=== PATIENT | male | born 1945 | race Caucasian/White ===

== ENCOUNTER 2017-11-04 21:15 | Inpatient (IN) | payer MEDICARE ==
[2017-11-04 23:44] LABS: Troponin I Less than 0.010 ng/mL (< 0.028)
[2017-11-05 01:25] VITALS: BMI 20.7
[2017-11-05] MEDS ORDERED: Ondansetron ODT 4 MG TAB SL PRN (02:03)
[2017-11-05] MEDS ORDERED: Ondansetron HCl/PF 4 MG/2 ML Vial IVP PRN ×2 (02:03→07:04)
[2017-11-05 02:49] LABS: Troponin I Less than 0.010 ng/mL (< 0.028)
[2017-11-05] MEDS ORDERED: Piperacillin/Tazobactam 3.375 GM in Sodium Chloride 0.9% 100 ML IVPB SCH (06:00)
[2017-11-05] MEDS ORDERED: hydrALAZINE 20 MG/ML VIAL SLOW IVP PRN (07:04)
[2017-11-05] MEDS ORDERED: Loperamide HCl 2 MG CAP PO PRN (07:04)
[2017-11-05] MEDS ORDERED: Artificial Tears 18 DROP/0.9 ML EA EYE PRN (07:04)
[2017-11-05] MEDS ORDERED: Milk Of Magnesia 30 ML UDCUP PO PRN (07:04)
[2017-11-05] MEDS ORDERED: Eucerin (Mineral Oil/Petrolatum,White) 30 gm Jar TOP PRN (07:04)
[2017-11-05] MEDS ORDERED: Ondansetron ODT 4 MG TAB PO PRN (07:04)
[2017-11-05] MEDS ORDERED: Senokot 8.6 MG TAB PO PRN (07:04)
[2017-11-05] MEDS ORDERED: Chloraseptic Spray 180 ml Bottle PO PRN (07:04)
[2017-11-05] MEDS ORDERED: Loratadine 10 MG TAB PO PRN (07:04)
[2017-11-05] MEDS ORDERED: Acetaminophen 325 MG TAB PO PRN (07:04)
[2017-11-05] MEDS ORDERED: Sodium Chloride 0.65% Nasal 44 ML BOT EA NARE PRN (07:04)
[2017-11-05] MEDS ORDERED: Mag-Al 1200 mg/1200 mg/30 ML UDCUP PO PRN (07:04)
[2017-11-05] MEDS: guaiFENesin ER 600 MG TAB PO SCH ×4 (08:14→20:27)
[2017-11-05] MEDS: Cyanocobalamin (Vitamin B-12) 1,000 MCG TAB PO SCH (08:14)
[2017-11-05] MEDS: Famotidine 20 MG TAB PO SCH ×2 (08:14→20:27)
[2017-11-05] MEDS: Folic Acid 1 MG TAB PO SCH (08:14)
[2017-11-05] MEDS ORDERED: Prevnar 13-Val Conj/PF 0.5 ML SYRINGE IM ONE (09:00)
[2017-11-05] MEDS: cefTRIAXone\\ROCEPHIN 1 GM in Sodium Chloride 0.9% 100 ML IVPB SCH (10:16)
--- NOTE | 2017-11-05 10:43 | CON ---
DATE OF CONSULTATION: 11/05/2017 The following encompassed 70 minutes time. Of that time, greater than 50% was spent with the patient and/or on the patient's unit in the hospital. CONSULTING PHYSICIAN: Marika Irby M.D. REASON FOR CONSULTATION: COPD. HISTORY OF PRESENT ILLNESS: A 72-year-old male, who presented in the hospital last night complaining that he had fallen and hurt his tailbone. It is not clear to me with a respiratory issue was. The ER note states that he was hypoxic on admission, but I think that is probably chronic in nature. He was also somewhat hypotensive. He had a CT pulmonary angiogram performed, which did not show any zac dence of pulmonary emboli, but showed extensive emphysema and scarring bilaterally. PAST MEDICAL HISTORY: Patient is a difficult historian. He says he probably has some COPD, but does not follow closely with doctor. PAST SURGICAL HISTORY: Left hip replacement and left knee surgery. SOCIAL HISTORY: The patient says he quit smoking 2 months ago. Formerly smoked less than a pack per day. Does not use alcohol, does not use illicit drugs. Lives at home with his . ALLERGIES: None. MEDICATIONS PRIOR TO ADMISSION: None. REVIEW OF SYSTEMS: A 12-point review of systems otherwise negative. PHYSICAL EXAMINATION: VITAL SIGNS: Temperature 97.8, pulse 68, respirations 20, O2 sat 90% on 2 liters, and blood pressure 129/78. HEENT: Unremarkable. NECK: Without adenopathy or JVD. He cannot talk above a whisper. LUNGS: Clear but distant. CARDIAC: S1 and S2, regular. ABDOMEN: Soft. EXTREMITIES: No edema. LABORATORY DATA: White blood cell count 4.1, hematocrit 49.8, platelet count 67. INR 1.1. Sodium 1 40, potassium 4.4, chloride 97, CO2 of 32, BUN 15, creatinine 0.7, glucose 106. I reviewed chest x-ray and CT of the chest personally. ASSESSMENT: 1. Chronic obstructive pulmonary disease with chronic hypoxemia - likely more than emphysematous sarah iety. 2. Vocal loss secondary to traumatic injury in the past. 3. Tailbone pain. RECOMMENDATIONS: 1. Agree with steroids, nebulization treatments, and low flow oxygen. Also agree with the antibioti cs. 2. In the future, he will need further pulmonary testing such as a PFT. This can be done as an outp atient. No further recommendations at this time.
[2017-11-05] MEDS ORDERED: Albumin 25% 25 GM/100 ML BOT IVPB SCH (11:13)
--- NOTE | 2017-11-05 11:51 | HP ---
PRIMARY CARE PHYSICIAN: [facility] call admission. REASON FOR ADMISSION: COPD exacerbation. HISTORY OF PRESENT ILLNESS: A 72-year-old male who is cachectic appearing, very poor historian and does not know about his medical history, but he only complains that his tailbone hurts. Couple of days ago, he fell down and since then he is hurting in his tailbone. He is not complaining of any shortness of breath, but he was hypoxic in the emergency room. He was having cough, productive of sputum. He feels dyspnea on exertion. Patient denies using oxygen at home. He has increasing bilateral lower extremity edema and he was feeling more and more weak. The patient also reports that he lost a significant amount of weight. The patient had recently frequent falls because of his overall weakness. The patient went to [facility]. Over there, he was febrile with a temperature 100.0. He was hypertensive and he was hypoxic with 89% on room air. The patient had elevated D-dimer and that is why CT angio was done, which was negative for pulmonary embolism, but it showed severe lung emphysema and some mass-like scarring in the left lower lobe, pulmonary artery hypertension, and mucus throughout the distal trachea. CT of the abdomen and pelvis was unremarkable. At [facility], he was given Zosyn, Lidocaine Viscous, DuoNeb therapy, Solu-Medrol 125 mg, and IV fluid. Subsequently, he was transferred to our hospital for further evaluation. PAST MEDICAL HISTORY: At this point, family member is not present, so patient is unable to provide any history, but he reports that he had vertebral fracture. History of hyperthyroidism, not on any medicine. The patient was told that he has COPD. PAST SURGICAL HISTORY: Left hip replacement, left knee surgery, left eye surgery. PAST PSYCHIATRIC HISTORY: Reviewed and negative. SOCIAL HISTORY: The patient is smoking one and a half cigarette per day. He denies any alcohol abuse. He denies any other illicit drug abuse. The patient is retired, lives with his . He is prior . FAMILY HISTORY: No strong family history of premature CAD, CVA or cancer. ALLERGIES: No known drug allergy. CURRENT HOME MEDICATIONS: Unable to verify his home medication because no family member present and patient does not have any clue of about medication. EMERGENCY ROOM COURSE: As mentioned above, the patient was given Zosyn, Solu- Medrol 125 mg, DuoNeb therapy, IV fluid at [facility]. REVIEW OF SYSTEMS: The following complete review of systems was negative, unless otherwise mentioned in the HPI or below: Constitutional: Weight loss or gain, ability to conduct usual activities. Skin: Rash, itching. Eyes: Double vision, pain. ENT/Mouth: Nose bleeding, neck stiffness, pain, tenderness. Cardiovascular: Palpitations, dyspnea on exertion, orthopnea. Respiratory: Shortness of breath, wheezing, cough, hemoptysis, fever or night sweats. Gastrointestinal: Poor appetite, abdominal pain, heartburn, nausea, vomiting, constipation, or diarrhea. Genitourinary: Urgency, frequency, dysuria, nocturia. Musculoskeletal: Pain, swelling. Neurologic/Psychiatric: Anxiety, depression. Allergy/Immunologic: Skin rash, bleeding tendency. Please see my HPI for pertinent positive and negative. All other review of system reviewed and negative except as mentioned in the HPI. PHYSICAL EXAMINATION: VITAL SIGNS: On arrival, blood pressure 104/51, pulse 85, respiratory rate 22, temperature 95.7. Initial temperature at [facility] was 100.6 , saturation 100% on 3 liter oxygen, weight 53.6 kilograms. GENERAL: Patient is cachectic and emaciated. HEENT: Normocephalic, atraumatic. Eyes: Pupils round, reactive to light. Extraocular muscle intact. ENT: Oropharynx within normal limits. Moist mucous membranes. No oral lesion, no pharyngeal erythema, no exudate. NECK: Patient does have gurgling sound, difficult to clear his oral and tracheal secretion. LUNGS: Bilateral end expiratory wheezing heard. Air entry reduced bilaterally , scattered rales noted, more on the left base. CARDIAC: S1 and S2 appears regular without any significant murmur. ABDOMEN: Scaphoid abdomen, no peritoneal sign, no organomegaly, no mass, no suprapubic tenderness. BACK: Patient has marked kyphosis. Patient does have a stage II pressure ulcer on sacrum, which is present on admission. No CVA tenderness. EXTREMITIES: Upper extremity passive movement of all joints are normal. Lower Bilateral lower extremity pitting edema noted. No calf tenderness. SKIN: No skin rash. PSYCHIATRIC: Normal affect. NEUROLOGIC: Grossly nonfocal examination. He is moving all 4 limbs. IMAGING DATA: EKG showing premature atrial complexes, left axis deviation. Chest, CT of the abdomen and pelvis showing no acute inflammatory process in the abdomen and pelvis, demineralization of the bone with multiple compression deformity as well as old right iliac wing fracture, third spacing consistent with low grade anasarca. CT angio showing severe lung emphysema, some mass- like scaring and left lower lobe, pulmonary artery hypertension, chronic bronchitis, mucus throughout the distal trachea. Chest x-ray, chronic changes, emphysematous changes. SIGNIFICANT LABORATORY DATA: CBC: WBC 4.1, hemoglobin 15.5, and platelet 67, MCV 106.9. INR 1.1. D-dimer 3.99. BMP: Sodium 140, potassium 4.4, chloride 97, carbon dioxide 32, anion gap 15, BUN 15, creatinine 0.76, glucose 106, calcium 8.7, lactic acid 1.1. LFT: AST 21, ALT 10, alkaline phosphatase 48, albumin 3.3, lipase 6, TSH 0.49. Cardiac enzymes negative x2. BNP 308.6. Urinalysis, microscopic hematuria. Blood culture negative so far. ASSESSMENT AND PLAN: 1. Frequent fall and tailbone pain. This is main patient complained and that is why we will do CT lumbar spine to rule out any fracture. CT of the abdomen and pelvis did report multiple compression deformity most likely this patient has underlying osteoporosis. The patient's pain will be controlled with pain medication. 2. Chronic obstructive pulmonary disease with chronic hypoxia and compensation with metabolic alkalosis. I am suspecting CO2 retention, chronic, and metabolic compensation based on elevated carbon dioxide, we will do ABG and confirmed his acid base status. He has associated hypoxia. We will try to keep his saturation around 92%. We will avoid high flow oxygen. We will continue with Solu-Medrol 20 mg IV q.6 hourly, Dulera two puff inhalation b.i.d. , empiric antibiotic therapy with Rocephin 1 gram q.24 hours, Levaquin 500 mg IV daily, Mucinex 600 mg 4 times daily, DuoNeb therapy every 6 hourly and as needed basis. Patient will need oxygen. 3. Severe protein calorie malnutrition. The patient will be given Ensure t.i.d., regular diet will be given. 4. Elevated BNP. Patient does have bilateral lower extremity edema. His BNP is elevated and that is why, we will do echocardiography. I am suspecting right -sided heart failure from chronic hypoxia and pulmonary hypertension and this could be a part of chronic cor pulmonale. If blood pressure permits, then we will continue the Lasix 20 mg IV daily. 5. Leukopenia and thrombocytopenia, etiology unclear. We will check B12, folate level tomorrow. We will also check hepatitis A, B, C given he is . 6. Macrocytosis. We will start folic acid and vitamin B12 therapy. 7. Thrombocytopenia. We will monitor platelet count and we will avoid anti- heparin product. 8. Elevated D-dimer, but negative CT angio for PE. 9. Microscopic hematuria. We will send urine culture. 10. Hypotension, most likely related with pulmonary hypertension from chronic hypoxia. 11. Hypoalbuminemia due to protein calorie malnutrition. The patient will be given nutritional supplement with albumin 25 grams. 12. Deep venous thrombosis prophylaxis. No Lovenox because of low platelet count. SCD boots only. 13. Gastrointestinal prophylaxis, Pepcid 20 mg p.o. b.i.d. CODE STATUS: The patient is FULL CODE. We will discuss with the patient's about code status later on. Disposition plan based on clinical course. The patient will need eventually PT , OT and possible placement. Plan of care discussed with the patient in detail. MTDD
[2017-11-05] MEDS ORDERED: methylPREDNISolone Sod Succ/PF 125 MG/2 ML VIAL IVP SCH (12:00)
--- NOTE | 2017-11-05 12:16 | CT ---
NONCONTRAST CT LUMBAR SPINE: Date: 11-05-17 History: Generalized weakness for three days. Worse today. Patient fell three days ago and has pain t o lower back and coccygeal region. Comparison: CT abdomen/pelvis, 11-04-17. FINDINGS: There has been interval development of a left pleural effusion when compared to recent study on 8. There is also partial visualization of a small right pleural effusion which also represents interv al change. There is minimal stranding seen in the medial aspect of the left upper quadrant which is more promine nt than on the prior exam. Residual contrast is seen in the renal collecting systems and ureters. Vascular calcifications are seen in the abdominal aorta and involving the iliac artery. There is ecta anya of the left common iliac artery with mild aneurysmal dilatation of the right common iliac artery. There is a small amount of fluid and edema within the presacral fat incompletely imaged or evaluated . There is diffuse osteopenia with mild compression deformities involving the T11, T12, L1 and to a muc h less extent, L5 vertebral bodies, of indeterminate age. There is a fracture involving the S2 verteb ral body which has the appearance of a more acute fracture and there is mild angulation of the fractu re. No subluxation is seen. There is calcification of the intervertebral disc of the lower thoracic spine at the thoracolumbar junction. T12-L1: There is posterior osteophyte formation and minimal disc bulge. The central spinal canal and neural foramina are patent. L1-2: There is no significant disc bulge or disc herniation. Central spinal canal and neural foramina are patent. There are mild facet degenerative changes. L2-3: There is minimal disc osteophyte complex and facet hypertrophic change as well as ligamentous t hickening resulting in mild to moderate narrowing of the central spinal canal. Neural foramina are pa tent. L3-4: There is mild loss of the intervertebral disc height. There is broad based disc osteophyte comp caterina. Facet hypertrophic changes and prominent ligamentous thickening are present resulting in moderat e to severe narrowing of the central spinal canal as well as narrowing of the lateral recesses at thi s level. There is mild right sided neural foraminal narrowing. There is minimal encroachment on the l eft neural foramen. L4-5: There is mild broad based disc osteophyte complex. Facet hypertrophic changes and ligamentous t hickening are present. There is moderate to severe narrowing of the central spinal canal. There is mi nimal narrowing of the right neural foramen. The left neural foramen is patent. L5-S1: There is minimal disc bulge present which does encroach on the traversing bilateral S5 nerve r oots without significant displacement or deformity of the nerve roots. Neural foramina are patent. Th ere are facet degenerative changes noted. IMPRESSION: 1. Interval development of bilateral pleural effusions when compared to study on 11-04-17. 2. Minimal edema and inflammatory changes in the posteromedial left upper quadrant adjacent to the sp akil and superior pole left kidney of uncertain etiology. There is also a small amount of fluid and e mary within the presacral fat. 3. 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 4. Acute angulated fracture involving the S2 vertebral body. 5. Compression deformities of lower thoracic vertebral bodies as well as the L1 and L5 vertebral bodi es of indeterminate age. 6. Diffuse severe osteopenia. POS: ЕЛЕНА
[2017-11-05] MEDS: Mometasone/Formoterol 120 PUFF INHALER INH SCH (18:11)
[2017-11-06 05:54] LABS: #Lymphocytes 0.4 thou/uL (1.20-3.40); #Monocytes 0.1 thou/uL (0.11-0.59); #Neutrophils 5.2 thou/uL (1.40-6.50); %Basophils 0.1 % (0.0-1.0); %Eosinophils 0.6 % (0.0-10.0); %Monocytes 2.4 % (0.0-10.0); %Neutrophils 89.9 % (42.0-75.0); Hemoglobin 14.7 g/dL (14.0-18.0); Mean Corpuscular HGB CONC 29.7 g/dL (32.0-36.0); Mean Corpuscular Hemoglobin 34.9 pg (27.0-31.0); Mean Platelet Volume 10.2 fL (7.4-10.4); Platelet Count 49 thou/uL (130-400); RBC Distribution Width 14.4 % (11.5-14.5); Red Blood Cell (RBC) Count 4.22 mill/uL (4.70-6.10); White Blood Cell (WBC) Count 5.8 thou/uL (4.8-10.8)
[2017-11-06 05:59] LABS: ALT (SGPT) 9 U/L (8-55); AST (SGOT) 19 U/L (5-34); Albumin 3.3 g/dL (3.4-4.8); Alkaline Phosphatase 42 U/L (40-150); Anion Gap 9 mmol/L (10-20); BUN (Urea Nitrogen) 17 mg/dL (8.4-25.7); Bilirubin, Total 0.4 mg/dL (0.2-1.2); Calc. Creatinine Clearance 75 mL/min (70-130); Calcium 8.6 mg/dL (7.8-10.44); Carbon Dioxide 34 mmol/L (23-31); Chloride 103 mmol/L (98-107); Estimated GFR-MDRD Greater than 90; Globulin 3.1 g/dL (2.4-3.5); Glucose 138 mg/dL (83-110); Potassium 5.8 mmol/L (3.5-5.1); Protein, Total 6.4 g/dL (5.8-8.1); Sodium 140 mmol/L (136-145)
[2017-11-06 06:15] LABS: HBCM Index 0.05 S/CO (0-0.79); HBSAg Index 0.23 S/CO (0-0.99); Hep A IgM AB Non-Reactive (NonReactive); Hep A IgM S/CO 0.27 S/CO (0-0.79); Hep B Surf Ag Non-Reactive S/CO (NonReactive); Hep C IgG Ab Non-Reactive (NonReactive); Hepatitis B Core IGM Abs Non-Reactive (NonReactive)
[2017-11-06] MEDS: Mometasone/Formoterol 120 PUFF INHALER INH SCH ×2 (06:49→18:23)
[2017-11-06] MEDS: guaiFENesin ER 600 MG TAB PO SCH ×4 (07:42→20:23)
[2017-11-06] MEDS: Cyanocobalamin (Vitamin B-12) 1,000 MCG TAB PO SCH (07:42)
[2017-11-06] MEDS: Famotidine 20 MG TAB PO SCH ×2 (07:42→20:22)
[2017-11-06] MEDS: Folic Acid 1 MG TAB PO SCH (07:42)
[2017-11-06 08:06] LABS: Magnesium 2.4 mg/dL (1.6-2.6); Phosphorus 3.2 mg/dL (2.3-4.7)
[2017-11-06 08:27] LABS: Thyroid Stimulating Hormone 0.4468 uIU/mL (0.35-4.94); Vitamin D, 25 Hydroxy 31.1 ng/ml (> 30.0)
[2017-11-06 08:40] LABS: Folate (Folic Acid) 11.8 ng/mL (7.0-31.4)
[2017-11-06] MEDS: cefTRIAXone\\ROCEPHIN 1 GM in Sodium Chloride 0.9% 100 ML IVPB SCH (08:43)
--- NOTE | 2017-11-06 10:10 | PDOC.PN ---
- Subjective Encounter Start Date: 11/06/17 Encounter Start Time: 08:00 -: old records requested/rev - Objective Resuscitation Status: Resuscitation Status FULL:Full Resuscitation MAR Reviewed: Yes Vital Signs & Weight: Vital Signs (12 hours) Temp Pulse Resp BP BP Pulse Ox 11/06/17 08:00 97.6 F 91 16 104/51 L 85 L 11/06/17 06:48 73 18 98 11/06/17 04:42 97.7 F 81 18 110/63 97 11/05/17 23:43 81 18 100 Weight Weight 132 lb 4.8 oz I&O: 11/05/17 11/06/17 11/07/17 06:59 06:59 06:59 Intake Total 350 360 Output Total 450 400 Balance -100 -40 Result Diagrams: 11/06/17 04:18 11/06/17 04:18 Additional Labs: Accuchecks 11/05/17 11:09 POC Glucose 134 H Phys Exam - Physical Examination Constitutional: NAD emaciated HEENT: PERRLA, moist MMs, sclera anicteric Neck: no JVD, supple reduced air entry Cardiovascular: RRR, no significant murmur, no rub Gastrointestinal: soft, non-tender, no distention, positive bowel sounds Musculoskeletal: pulses present, edema present Neurological: non-focal, normal sensation Lymphatic: no nodes Psychiatric: normal affect Skin: no rash, normal turgor Dx/Plan (1) Acute on chronic respiratory failure with hypoxia and hypercapnia Code(s): J96.21 - ACUTE AND CHRONIC RESPIRATORY FAILURE WITH HYPOXIA; J96.22 - ACUTE AND CHRONIC RESPIRATORY FAILURE WITH HYPERCAPNIA Status: Acute (2) COPD exacerbation Code(s): J44.1 - CHRONIC OBSTRUCTIVE PULMONARY DISEASE W (ACUTE) EXACERBATION Status: Acute (3) Physical deconditioning Code(s): R53.81 - OTHER MALAISE Status: Acute (4) Sacral fracture Code(s): S32.10XA - UNSP FRACTURE OF SACRUM, INIT ENCNTR FOR CLOSED FRACTURE Status: Acute (5) Compression fracture of body of thoracic vertebra Code(s): S22.000A - WEDGE COMPRESSION FRACTURE OF UNSP THORACIC VERTEBRA, INIT Status: Chronic (6) Hypoalbuminemia due to protein-calorie malnutrition Code(s): E46 - UNSPECIFIED PROTEIN-CALORIE MALNUTRITION Status: Chronic (7) Macrocytosis Code(s): D75.89 - OTHER SPECIFIED DISEASES OF BLOOD AND BLOOD-FORMING ORGANS Status: Chronic (8) Osteoporosis Code(s): M81.0 - AGE-RELATED OSTEOPOROSIS W/O CURRENT PATHOLOGICAL FRACTURE Status: Chronic (9) Protein-calorie malnutrition, moderate Code(s): E44.0 - MODERATE PROTEIN-CALORIE MALNUTRITION Status: Chronic (10) Pulmonary hypertension Code(s): I27.20 - PULMONARY HYPERTENSION, UNSPECIFIED Status: Chronic (11) Thrombocytopenia Code(s): D69.6 - THROMBOCYTOPENIA, UNSPECIFIED Status: Chronic (12) Tobacco abuse Code(s): Z72.0 - TOBACCO USE Status: Chronic - Plan cont current plan of care, continue antibiotics, PT/OT, social service manager, respiratory therapy * reduce solumedrol 20 mg iv q 8 hourly * continue current optimum medical therapy for copd flare up * continue rocephin and levaquin * for compression fracture and sacral fracture, he will need neurosurgery consult. he may need brace * pain controlled * B12, folate, phos, mag, vit d level, PTH checked * nutritional support * will need oxygen on discharge * echo pending * will need placement on discharge Review of Systems - Review of Systems Constitutional: weakness, malaise. negative: fever, chills, sweats, other ENT: negative: Ear Pain, Ear Discharge, Nose Pain, Nose Discharge, Nose Congestion, Mouth Pain, Mouth Swelling, Throat Pain, Throat Swelling, Other Respiratory: Cough, Shortness of Breath, SOB with Excertion. negative: Dry, Hemoptysis, Pleuritic Pain, Sputum, Wheezing Cardiovascular: negative: chest pain, palpitations, orthopnea, paroxysmal nocturnal dyspnea, edema, light headedness, other Gastrointestinal: negative: Nausea, Vomiting, Abdominal Pain, Diarrhea, Constipation, Melena, Hematochezia, Other Genitourinary: negative: Dysuria, Frequency, Incontinence, Hematuria, Retention , Other Musculoskeletal: Back Pain. negative: Neck Pain, Shoulder Pain, Arm Pain, Hand Pain, Leg Pain, Foot Pain, Other Skin: negative: Rash, Lesions, Tito, Bruising, Other - Medications/Allergies Allergies/Adverse Reactions: Allergies Allergy/AdvReac Type Severity Reaction Status Date / Time No Known Allergies Allergy Unverified 11/05/17 01:30 Medications: Current Medications Acetaminophen (Tylenol) 650 mg PO Q4H PRN PRN Reason: Headache/Fever or Pain Last Admin: 11/05/17 20:27 Dose: 650 mg Hydrocodone Bitart/Acetaminophen ([place] 5/325) 1 tab PO Q4H PRN PRN Reason: Moderate Pain (4-6) Al Hydroxide/Mg Hydroxide (Maalox) 30 ml PO Q6H PRN PRN Reason: Heartburn or Indigestion Albuterol/Ipratropium (Duoneb) 3 ml NEB [id number] [facility] Last Admin: 11/06/17 06:48 Dose: 3 ml Albuterol/Ipratropium (Duoneb) 3 ml NEB [id number] PRN PRN Reason: SOB &/or Wheezing Artificial Tears (Tears Naturale) 0 drop EA EYE PRN PRN PRN Reason: Dry Eyes Cyanocobalamin (Vitamin B-12) 1,000 mcg PO DAILY [facility] Last Admin: 11/06/17 07:42 Dose: 1,000 mcg Famotidine (Pepcid) 20 mg PO BID [facility] Last Admin: 11/06/17 07:42 Dose: 20 mg Folic Acid (Folvite) 1 mg PO DAILY [facility] Last Admin: 11/06/17 07:42 Dose: 1 mg Guaifenesin (Mucinex) 600 mg PO QID [facility] Last Admin: 11/06/17 07:42 Dose: 600 mg Hydralazine HCl (Apresoline) 10 mg SLOW IVP Q4H PRN PRN Reason: Systolic BP > 180 Ceftriaxone Sodium 1 gm/ (Sodium Chloride) 100 mls @ 200 mls/hr IVPB 0800 [facility] Last Admin: 11/06/17 08:43 Dose: 100 mls Levofloxacin 500 mg/ Device 100 mls @ 100 mls/hr IVPB 0800 [facility] Last Admin: 11/06/17 07:41 Dose: 100 mls Loperamide HCl (Imodium) 2 mg PO PRN PRN PRN Reason: Diarrhea/Loose Stools Loratadine (Claritin) 10 mg PO DAILYPRN PRN PRN Reason: Sinus Symptoms Magnesium Hydroxide (Milk Of Magnesium) 30 ml PO DAILYPRN PRN PRN Reason: Constipation Methylprednisolone Sodium Succinate (Solu-Medrol) 20 mg IVP Q8HR [facility] Mineral Oil/White Petrolatum (Eucerin Cream) 0 gm TOP BIDPRN PRN PRN Reason: Dry Skin Mometasone Furoate/Formoterol Fumar (Dulera 200 Mcg/5 Mcg Inhaler) 2 puff INH BID-RT [facility] Last Admin: 11/06/17 06:49 Dose: 2 puff Ondansetron HCl (Zofran Odt) 4 mg PO Q6H PRN PRN Reason: Nausea/Vomiting Ondansetron HCl (Zofran) 4 mg IVP Q6H PRN PRN Reason: Nausea/Vomiting Phenol (Chloraseptic Adams 180 Ml Bot) 0 ml PO PRN PRN PRN Reason: Sore Throat Senna (Senokot) 2 tab PO HSPRN PRN PRN Reason: Constipation Sodium Chloride ([place] Nasal Adams 0.65%) 0 ml EA NARE QIDPRN PRN PRN Reason: Nasal Congestion Sodium Polystyrene Sulfonate (Kayexelate Oral Susp 15 Gm/60 Ml) 15 gm PO 0900 [facility] Stop: 11/06/17 12:00 Zolpidem Tartrate (Ambien) 5 mg PO HSPRN PRN PRN Reason: Insomnia
--- NOTE | 2017-11-06 15:39 | CON ---
DATE OF CONSULTATION: 11/06/2017 ORTHOPEDIC CONSULTATION REQUESTING PHYSICIAN: Dr. Irby. BRIEF HISTORY OF PRESENT ILLNESS: Mr. De Leon is a 72-year-old cachectic male who is examined today at bedside at the request of Dr. Irby. Patient reports that a few days prior to his admission on , he fell landing on his buttocks with subsequent "tailbone" pain. Patient now admitted for exacerbation of COPD and with his complaint of ongoing sacral pain, a CT scan of the lumbar spine and sacrum was obtained and this shows insufficiency fracture of the body of S2 and orthopedic consultat ion then requested. Of note, patient reports that about 2 months ago, he had another fall landing on his left side. He reports that he was in a wheelchair for nearly 2 months and just recently started to attempt ambulation again when he sustained this most current fall. He denies numbness or tinglin g in the lower legs, but does report swelling in the bilateral lower legs which is in a more chronic problem. PAST MEDICAL HISTORY: Per chart is remarkable for severe COPD, history of hyperthyroidism. Patient is extremely short of breath and essentially speaks as in a whisper. PAST SURGICAL HISTORY: Includes left total hip arthroplasty, left knee surgery and left eye surgery. SOCIAL HISTORY: He smokes an occasional cigarette daily. He denies alcohol use or illicit drug use. FAMILY HISTORY: Noncontributory. ALLERGIES: None known. HOME MEDICATIONS: At time of admission it was unclear whether he was taking any of his normal home m edications. REVIEW OF SYSTEMS: Denies recent fevers, chills or sweats. He reports chronic shortness of breath a nd exertional dyspnea. Denies numbness or tingling in the lower extremity. PHYSICAL EXAMINATION: VITAL SIGNS: Temperature 97.6, heart rate of 75, respiratory rate of 14 and blood pressure of 104/51 . HEENT: Atraumatic and normocephalic. LUNGS: Remarkable for bilateral end expiratory wheezing and extremely reduced air movement. HEART: Shows a regular rate and rhythm without murmur. BACK: Remarkable for some discomfort in the sacral region. PELVIS: Stable to compression without significant increase in sacral pain. MUSCULOSKELETAL: Bilateral lower extremities are neurologically intact. He is found to have depende nt rubor and some baseline pitting edema. IMAGING DATA: CT scan of the lumbar spine which includes the sacrum remarkable for a S2 fracture of the body of S2 with no significant narrowing of the neural foramina. ASSESSMENT: Patient with S2 body fracture, stable. PLAN: Today, I discussed with patient that we will treat this with nonsurgical management. I have s josé antonioly recommended that he use a walker when ambulating to try and minimize any additional falls. H e will just require some pain management, although this will be a delicate balance so as not to cause any further sedation which would further compromise his breathing. We will follow patient expectant ly while in the hospital and he can either follow up with his primary care physician or the fracture clinic as needed.
--- NOTE | 2017-11-06 18:22 | PRG ---
DATE OF SERVICE: 11/06/2017 SERVICE: Pulmonary Medicine. INTERVAL HISTORY: The patient is doing fine from a respiratory standpoint. He has significant amounts of secretions deep in his chest. That being said, he does not have a really effective cough that clearing it. He denies any current fevers, chills, nausea or vomiting. He notes coughing a little bit more whenever he is drinking some water. Over the last couple of months, it has occurred, intermittently. PHYSICAL EXAMINATION: VITAL SIGNS: Afebrile, pulse 91, blood pressure 104/51, respirations 16, saturation 98% on 2 liters nasal cannula. GENERAL: The patient is awake, alert, in no apparent distress. LUNGS: There is decreased air entry. Rhonchi are extensive. There is prolonged expiratory phase, but no wheezing or crackles are appreciated. HEART: Normal rate, regular. ABDOMEN: Soft, nontender, nondistended. Bowel sounds are positive. MUSCULOSKELETAL: No cyanosis or clubbing. There is no pitting in the bilateral lower extremities. NEUROLOGIC: Grossly nonfocal. LABORATORY DATA: WBC 5.8, hemoglobin 14.7, platelets 49,000, MCV 117. Basic metabolic profile is essentially unremarkable except for potassium of 5.8. ASSESSMENT: 1. Chronic obstructive pulmonary disease with acute exacerbation. 2. Chronic hypoxic respiratory failure. 3. Recent traumatic injury to the voice box resulting in a lack of phonation. 4. Tailbone pain. DISCUSSION AND PLAN: We will continue antibiotics, nebulized medications, and steroids. He will need to undergo evaluation with pulmonary function studies in the outpatient setting prior to follow up with Dr. Burnette. I will have Speech Pathology look at him. I would like for them to strongly consider doing a modified barium swallow given his inability to phonate, and complaints of intermittent episodes of coughing associated with eating. TOYIN
[2017-11-07] MEDS: Mometasone/Formoterol 120 PUFF INHALER INH SCH ×2 (06:10→18:33)
--- NOTE | 2017-11-07 07:46 | EKG ---
Test Reason : Blood Pressure : / mmHG Vent. Rate : 079 BPM Atrial Rate : 079 BPM P-R Int : 164 ms QRS Dur : 080 ms QT Int : 372 ms P-R-T Axes : 086 010 059 degrees QTc Int : 426 ms Normal sinus rhythm Low voltage Anterior infarct , age undetermined Abnormal ECG When compared with ECG of 04-NOV-2017 21:27, (Unconfirmed) Premature atrial complexes are no longer Present Confirmed by DR. Caitie CAMARENA ([id number]) on 11/07/2017 7:46:34 AM Referred By: LOUIS Confirmed By:DR. Caitie CAMARENA
[2017-11-07] MEDS: Folic Acid 1 MG TAB PO SCH (08:00)
[2017-11-07] MEDS: Cyanocobalamin (Vitamin B-12) 1,000 MCG TAB PO SCH (08:01)
[2017-11-07] MEDS: guaiFENesin ER 600 MG TAB PO SCH ×4 (08:01→21:41)
[2017-11-07] MEDS: Famotidine 20 MG TAB PO SCH ×2 (08:01→21:41)
[2017-11-07] MEDS: cefTRIAXone\\ROCEPHIN 1 GM in Sodium Chloride 0.9% 100 ML IVPB SCH (09:19)
--- NOTE | 2017-11-07 09:21 | PRG ---
DATE OF SERVICE: 11/07/2017 The patient is doing better, had no complaints. PHYSICAL EXAMINATION: VITAL SIGNS: Temperature 98.0, pulse 92, respiration 16, O2 sat 90% on 1.5 liters, blood pressure 13 9/81. HEENT: Unremarkable. NECK: No JVD. LUNGS: Clear with distant breath sounds. CARDIOVASCULAR: S1, S2 regular. ABDOMEN: Soft, nontender. EXTREMITIES: No edema. LABORATORY: No new labs were obtained today. ASSESSMENT: 1. Chronic obstructive pulmonary disease with exacerbation. 2. Chronic hypoxic respiratory failure. 3. Elevated PTH level. 4. Traumatic injury to the voice box. 5. Tailbone pain. PLAN: The patient probably needs to be evaluated by Speech Therapy regarding his voice loss. I thin k he will need home O2 given his low O2 sats. I think he can be switched to oral antibiotics and I think he is probably safe for discharge otherwise.
--- NOTE | 2017-11-07 10:32 | PDOC.PN ---
- Subjective Encounter Start Date: 11/07/17 Encounter Start Time: 08:00 pt is very weak, has hoarsness, gurgling sound in his throat, no fever - Objective Resuscitation Status: Resuscitation Status FULL:Full Resuscitation MAR Reviewed: Yes Vital Signs & Weight: Vital Signs (12 hours) Temp Pulse Resp BP Pulse Ox 11/07/17 08:19 98.0 F 92 16 98 11/07/17 07:39 98.0 F 92 16 139/81 98 11/07/17 07:06 100 11/07/17 06:10 84 16 11/06/17 23:23 89 16 100 11/06/17 23:10 85 100 Weight Weight 132 lb 4.8 oz I&O: 11/06/17 11/07/17 11/08/17 06:59 06:59 06:59 Intake Total 360 Output Total 400 450 Balance -40 -450 Result Diagrams: 11/06/17 04:18 11/06/17 04:18 Phys Exam - Physical Examination Constitutional: NAD emaciated HEENT: PERRLA, moist MMs, sclera anicteric Neck: no JVD, supple Respiratory: no wheezing, no rhonchi coarse sound, reduced air entry Cardiovascular: RRR, no significant murmur, no rub Gastrointestinal: soft, non-tender, no distention, positive bowel sounds Musculoskeletal: pulses present, edema present Neurological: non-focal Lymphatic: no nodes Psychiatric: normal affect, A&O x 3 Skin: no rash, normal turgor Dx/Plan (1) Acute on chronic respiratory failure with hypoxia and hypercapnia Code(s): J96.21 - ACUTE AND CHRONIC RESPIRATORY FAILURE WITH HYPOXIA; J96.22 - ACUTE AND CHRONIC RESPIRATORY FAILURE WITH HYPERCAPNIA Status: Acute (2) COPD exacerbation Code(s): J44.1 - CHRONIC OBSTRUCTIVE PULMONARY DISEASE W (ACUTE) EXACERBATION Status: Acute (3) Physical deconditioning Code(s): R53.81 - OTHER MALAISE Status: Acute (4) Sacral fracture Code(s): S32.10XA - UNSP FRACTURE OF SACRUM, INIT ENCNTR FOR CLOSED FRACTURE Status: Acute (5) Compression fracture of body of thoracic vertebra Code(s): S22.000A - WEDGE COMPRESSION FRACTURE OF UNSP THORACIC VERTEBRA, INIT Status: Chronic (6) Hypoalbuminemia due to protein-calorie malnutrition Code(s): E46 - UNSPECIFIED PROTEIN-CALORIE MALNUTRITION Status: Chronic (7) Macrocytosis Code(s): D75.89 - OTHER SPECIFIED DISEASES OF BLOOD AND BLOOD-FORMING ORGANS Status: Chronic (8) Osteoporosis Code(s): M81.0 - AGE-RELATED OSTEOPOROSIS W/O CURRENT PATHOLOGICAL FRACTURE Status: Chronic (9) Protein-calorie malnutrition, moderate Code(s): E44.0 - MODERATE PROTEIN-CALORIE MALNUTRITION Status: Chronic (10) Pulmonary hypertension Code(s): I27.20 - PULMONARY HYPERTENSION, UNSPECIFIED Status: Chronic (11) Thrombocytopenia Code(s): D69.6 - THROMBOCYTOPENIA, UNSPECIFIED Status: Chronic (12) Tobacco abuse Code(s): Z72.0 - TOBACCO USE Status: Chronic - Plan cont current plan of care, plan discussed w/ family, continue antibiotics, PT/OT , social research assistant, speech therapy, respiratory therapy * DC Rivera * continue PT * ortho recommendation noted * medication reviewed as below * symptomatic treatment * discussed with * will need home o2 and I think he will benefit from SNU * continue respiratory therapy * nutritional support. * change solumedrol to oral prednisone * change iv antibiotics to oral omnicef Review of Systems - Review of Systems Constitutional: weakness. negative: fever, chills, sweats, malaise, other Respiratory: Cough, Shortness of Breath, SOB with Excertion. negative: Dry, Hemoptysis, Pleuritic Pain, Sputum, Wheezing Cardiovascular: negative: chest pain, palpitations, orthopnea, paroxysmal nocturnal dyspnea, edema, light headedness, other Gastrointestinal: negative: Nausea, Vomiting, Abdominal Pain, Diarrhea, Constipation, Melena, Hematochezia, Other Genitourinary: negative: Dysuria, Frequency, Incontinence, Hematuria, Retention , Other Musculoskeletal: negative: Neck Pain, Shoulder Pain, Arm Pain, Back Pain, Hand Pain, Leg Pain, Foot Pain, Other Skin: negative: Rash, Lesions, Tito, Bruising, Other - Medications/Allergies Allergies/Adverse Reactions: Allergies Allergy/AdvReac Type Severity Reaction Status Date / Time No Known Allergies Allergy Unverified 11/05/17 01:30 Medications: Current Medications Acetaminophen (Tylenol) 650 mg PO Q4H PRN PRN Reason: Headache/Fever or Pain Last Admin: 07/03/18 20:27 Dose: 650 mg Hydrocodone Bitart/Acetaminophen ([place] 5/325) 1 tab PO Q4H PRN PRN Reason: Moderate Pain (4-6) Al Hydroxide/Mg Hydroxide (Maalox) 30 ml PO Q6H PRN PRN Reason: Heartburn or Indigestion Albuterol/Ipratropium (Duoneb) 3 ml NEB [id number] [facility] Last Admin: 11/07/17 06:10 Dose: 3 ml Albuterol/Ipratropium (Duoneb) 3 ml NEB [id number] PRN PRN Reason: SOB &/or Wheezing Artificial Tears (Tears Naturale) 0 drop EA EYE PRN PRN PRN Reason: Dry Eyes Cefdinir (Omnicef) 600 mg PO DAILY [facility] Cyanocobalamin (Vitamin B-12) 1,000 mcg PO DAILY [facility] Last Admin: 11/07/17 08:01 Dose: 1,000 mcg Famotidine (Pepcid) 20 mg PO BID [facility] Last Admin: 11/07/17 08:01 Dose: 20 mg Folic Acid (Folvite) 1 mg PO DAILY [facility] Last Admin: 11/07/17 08:00 Dose: 1 mg Guaifenesin (Mucinex) 600 mg PO QID [facility] Last Admin: 11/07/17 08:01 Dose: 600 mg Hydralazine HCl (Apresoline) 10 mg SLOW IVP Q4H PRN PRN Reason: Systolic BP > 180 Loperamide HCl (Imodium) 2 mg PO PRN PRN PRN Reason: Diarrhea/Loose Stools Loratadine (Claritin) 10 mg PO DAILYPRN PRN PRN Reason: Sinus Symptoms Magnesium Hydroxide (Milk Of Magnesium) 30 ml PO DAILYPRN PRN PRN Reason: Constipation Mineral Oil/White Petrolatum (Eucerin Cream) 0 gm TOP BIDPRN PRN PRN Reason: Dry Skin Mometasone Furoate/Formoterol Fumar (Dulera 200 Mcg/5 Mcg Inhaler) 2 puff INH BID-RT [facility] Last Admin: 11/07/17 06:10 Dose: 2 puff Ondansetron HCl (Zofran Odt) 4 mg PO Q6H PRN PRN Reason: Nausea/Vomiting Ondansetron HCl (Zofran) 4 mg IVP Q6H PRN PRN Reason: Nausea/Vomiting Phenol (Chloraseptic [place] 180 Ml Bot) 0 ml PO PRN PRN PRN Reason: Sore Throat Prednisone (Prednisone) 20 mg PO BID [facility] Senna (Senokot) 2 tab PO HSPRN PRN PRN Reason: Constipation Sodium Chloride ([place] Nasal [place] 0.65%) 0 ml EA NARE QIDPRN PRN PRN Reason: Nasal Congestion Zolpidem Tartrate (Ambien) 5 mg PO HSPRN PRN PRN Reason: Insomnia
--- NOTE | 2017-11-07 11:53 | RAD ---
MODIFIED BARIUM SWALLOW WITH SPEECH THERAPIST: History: Coughing with eating. Bilateral infiltrates. History: Dysphagia and feeding difficulties. Exposure: 1.9 minutes fluoroscopic time and 0.454 mGy*cm^2. FINDINGS/IMPRESSION: A modified barium swallow was performed by the speech therapist. Slava aspiration was seen with thin liquids. Penetration was seen with nectar thick liquids. Please see dedicated speech therapy report f or specific findings and recommendations. POS: ISABELLA
[2017-11-07] MEDS: predniSONE 20 MG TAB PO SCH (21:41)
[2017-11-08] MEDS: Mometasone/Formoterol 120 PUFF INHALER INH SCH ×2 (06:38→19:28)
[2017-11-08 08:09] LABS: BUN (Urea Nitrogen) 19 mg/dL (8.4-25.7); Calc. Creatinine Clearance 80 mL/min (70-130); Calcium 8.9 mg/dL (7.8-10.44); Estimated GFR-MDRD Greater than 90; Glucose 113 mg/dL (83-110)
[2017-11-08 08:18] LABS: Anion Gap 10 mmol/L (10-20); Carbon Dioxide 38 mmol/L (23-31); Chloride 96 mmol/L (98-107); Potassium 5.9 mmol/L (3.5-5.1); Sodium 138 mmol/L (136-145)
[2017-11-08] MEDS: predniSONE 20 MG TAB PO SCH ×2 (08:32→20:00)
[2017-11-08] MEDS: guaiFENesin ER 600 MG TAB PO SCH ×4 (08:32→20:00)
[2017-11-08] MEDS: Famotidine 20 MG TAB PO SCH ×2 (08:32→19:59)
[2017-11-08] MEDS: Cyanocobalamin (Vitamin B-12) 1,000 MCG TAB PO SCH (08:32)
[2017-11-08] MEDS: Cefdinir 300 MG CAP PO SCH (08:32)
[2017-11-08] MEDS: Folic Acid 1 MG TAB PO SCH (08:32)
[2017-11-08 09:12] LABS: #Lymphocytes 0.6 thou/uL (1.20-3.40); #Monocytes 0.3 thou/uL (0.11-0.59); #Neutrophils 4.9 thou/uL (1.40-6.50); %Eosinophils 0.8 % (0.0-10.0); %Lymphocytes 9.3 % (21.0-51.0); %Monocytes 5.8 % (0.0-10.0); %Neutrophils 84.1 % (42.0-75.0); Hemoglobin 14.2 g/dL (14.0-18.0); MDiff Complete? YES; Macrocytosis MODERATE=16-30 cells (100X) (0-5/hpf); Mean Corpuscular HGB CONC 29.6 g/dL (32.0-36.0); Mean Corpuscular Hemoglobin 34.6 pg (27.0-31.0); Mean Platelet Volume 9.2 fL (7.4-10.4); PLT Morphology Comment Appears Decreased; Platelet Count 55 thou/uL (130-400); RBC Distribution Width 13.9 % (11.5-14.5); Stomatocytes SLIGHT = 2-5 cells (100X) (0-1/hpf); White Blood Cell (WBC) Count 5.9 thou/uL (4.8-10.8)
--- NOTE | 2017-11-08 10:40 | PDOC.PN ---
- Subjective Encounter Start Date: 11/08/17 Encounter Start Time: 08:00 Patient seen and examined. No new complaints. No overnight events - Objective Resuscitation Status: Resuscitation Status FULL:Full Resuscitation MAR Reviewed: Yes Vital Signs & Weight: Vital Signs (12 hours) Temp Pulse Resp BP Pulse Ox 11/08/17 07:45 98.0 F 83 20 97 11/08/17 07:38 98.0 F 83 20 136/75 97 11/08/17 06:38 93 20 95 11/08/17 06:23 84 16 96 Weight Weight 132 lb 4.8 oz I&O: 11/07/17 11/08/17 11/09/17 06:59 06:59 06:59 Intake Total 780 Output Total 450 700 Balance -450 80 Result Diagrams: 11/08/17 07:28 11/08/17 07:28 Radiology Reviewed by me: Yes (echo) Phys Exam - Physical Examination Constitutional: NAD HEENT: PERRLA, moist MMs, sclera anicteric Neck: no JVD, supple Respiratory: no wheezing, no rales, no rhonchi reduced air entry Cardiovascular: RRR, no significant murmur, no rub Gastrointestinal: soft, non-tender, no distention, positive bowel sounds Musculoskeletal: pulses present, edema present Neurological: non-focal, normal sensation Lymphatic: no nodes Psychiatric: normal affect Skin: no rash, normal turgor Dx/Plan (1) Acute on chronic respiratory failure with hypoxia and hypercapnia Code(s): J96.21 - ACUTE AND CHRONIC RESPIRATORY FAILURE WITH HYPOXIA; J96.22 - ACUTE AND CHRONIC RESPIRATORY FAILURE WITH HYPERCAPNIA Status: Acute (2) COPD exacerbation Code(s): J44.1 - CHRONIC OBSTRUCTIVE PULMONARY DISEASE W (ACUTE) EXACERBATION Status: Acute (3) Physical deconditioning Code(s): R53.81 - OTHER MALAISE Status: Acute (4) Sacral fracture Code(s): S32.10XA - UNSP FRACTURE OF SACRUM, INIT ENCNTR FOR CLOSED FRACTURE Status: Acute (5) Compression fracture of body of thoracic vertebra Code(s): S22.000A - WEDGE COMPRESSION FRACTURE OF UNSP THORACIC VERTEBRA, INIT Status: Chronic (6) Hypoalbuminemia due to protein-calorie malnutrition Code(s): E46 - UNSPECIFIED PROTEIN-CALORIE MALNUTRITION Status: Chronic (7) Macrocytosis Code(s): D75.89 - OTHER SPECIFIED DISEASES OF BLOOD AND BLOOD-FORMING ORGANS Status: Chronic (8) Osteoporosis Code(s): M81.0 - AGE-RELATED OSTEOPOROSIS W/O CURRENT PATHOLOGICAL FRACTURE Status: Chronic (9) Protein-calorie malnutrition, moderate Code(s): E44.0 - MODERATE PROTEIN-CALORIE MALNUTRITION Status: Chronic (10) Pulmonary hypertension Code(s): I27.20 - PULMONARY HYPERTENSION, UNSPECIFIED Status: Chronic (11) Thrombocytopenia Code(s): D69.6 - THROMBOCYTOPENIA, UNSPECIFIED Status: Chronic (12) Tobacco abuse Code(s): Z72.0 - TOBACCO USE Status: Chronic - Plan cont current plan of care, continue antibiotics, PT/OT, social organization professor, respiratory therapy * will need placement to prevent readmission, he is weak to go home * he will need oxygen * medication reviewed as below * symptomatic treatment * continue omnicef, prednisone and respiratory therapy. Review of Systems - Review of Systems Constitutional: weakness. negative: fever, chills, sweats, malaise, other ENT: negative: Ear Pain, Ear Discharge, Nose Pain, Nose Discharge, Nose Congestion, Mouth Pain, Mouth Swelling, Throat Pain, Throat Swelling, Other Respiratory: Cough, Shortness of Breath, SOB with Excertion. negative: Dry, Hemoptysis, Pleuritic Pain, Sputum, Wheezing Cardiovascular: negative: chest pain, palpitations, orthopnea, paroxysmal nocturnal dyspnea, edema, light headedness, other Gastrointestinal: negative: Nausea, Vomiting, Abdominal Pain, Diarrhea, Constipation, Melena, Hematochezia, Other Genitourinary: negative: Dysuria, Frequency, Incontinence, Hematuria, Retention , Other Musculoskeletal: negative: Neck Pain, Shoulder Pain, Arm Pain, Back Pain, Hand Pain, Leg Pain, Foot Pain, Other Skin: negative: Rash, Lesions, Tito, Bruising, Other - Medications/Allergies Allergies/Adverse Reactions: Allergies Allergy/AdvReac Type Severity Reaction Status Date / Time No Known Allergies Allergy Unverified 11/05/17 01:30 Medications: Current Medications Acetaminophen (Tylenol) 650 mg PO Q4H PRN PRN Reason: Headache/Fever or Pain Last Admin: 11/05/17 20:27 Dose: 650 mg Hydrocodone Bitart/Acetaminophen ([place] 5/325) 1 tab PO Q4H PRN PRN Reason: Moderate Pain (4-6) Al Hydroxide/Mg Hydroxide (Maalox) 30 ml PO Q6H PRN PRN Reason: Heartburn or Indigestion Albuterol/Ipratropium (Duoneb) 3 ml NEB [id number] Last Admin: 11/08/17 06:23 Dose: 3 ml Albuterol/Ipratropium (Duoneb) 3 ml NEB [id number] PRN PRN Reason: SOB &/or Wheezing Artificial Tears (Tears Naturale) 0 drop EA EYE PRN PRN PRN Reason: Dry Eyes Cefdinir (Omnicef) 600 mg PO DAILY [facility] Last Admin: 11/08/17 08:32 Dose: 600 mg Cyanocobalamin (Vitamin B-12) 1,000 mcg PO DAILY [facility] Last Admin: 11/08/17 08:32 Dose: 1,000 mcg Famotidine (Pepcid) 20 mg PO BID [facility] Last Admin: 11/08/17 08:32 Dose: 20 mg Folic Acid (Folvite) 1 mg PO DAILY [facility] Last Admin: 11/08/17 08:32 Dose: 1 mg Guaifenesin (Mucinex) 600 mg PO QID [facility] Last Admin: 11/08/17 08:32 Dose: 600 mg Hydralazine HCl (Apresoline) 10 mg SLOW IVP Q4H PRN PRN Reason: Systolic BP > 180 Loperamide HCl (Imodium) 2 mg PO PRN PRN PRN Reason: Diarrhea/Loose Stools Loratadine (Claritin) 10 mg PO DAILYPRN PRN PRN Reason: Sinus Symptoms Magnesium Hydroxide (Milk Of Magnesium) 30 ml PO DAILYPRN PRN PRN Reason: Constipation Mineral Oil/White Petrolatum (Eucerin Cream) 0 gm TOP BIDPRN PRN PRN Reason: Dry Skin Mometasone Furoate/Formoterol Fumar (Dulera 200 Mcg/5 Mcg Inhaler) 2 puff INH BID-RT [facility] Last Admin: 11/08/17 06:38 Dose: 2 puff Ondansetron HCl (Zofran Odt) 4 mg PO Q6H PRN PRN Reason: Nausea/Vomiting Ondansetron HCl (Zofran) 4 mg IVP Q6H PRN PRN Reason: Nausea/Vomiting Phenol (Chloraseptic [place] 180 Ml Bot) 0 ml PO PRN PRN PRN Reason: Sore Throat Prednisone (Prednisone) 20 mg PO BID [facility] Last Admin: 11/08/17 08:32 Dose: 20 mg Senna (Senokot) 2 tab PO HSPRN PRN PRN Reason: Constipation Sodium Chloride ([place] Nasal [place] 0.65%) 0 ml EA NARE QIDPRN PRN PRN Reason: Nasal Congestion Sodium Polystyrene Sulfonate (Kayexelate Oral Susp 15 Gm/60 Ml) 30 gm PO NOW [facility] Stop: 11/08/17 12:00 Zolpidem Tartrate (Ambien) 5 mg PO HSPRN PRN PRN Reason: Insomnia
--- NOTE | 2017-11-08 10:45 | PQF ---
CLINICAL DOCUMENTATION IMPROVEMENT CLARIFICATION FORM: ICD-10 Updated PLEASE DO AN ADDENDUM TO THE PROGRESS NOTE WITH ANY DOCUMENTATION UPDATES OR ADDITIONS AND CARRY THROUGH TO DC SUMMARY. THANK YOU. DATE: 11/08 ATTN: DR. SHAREE MYERS Please exercise your independent, professional judgment in responding to the clarification form. Clinical indicators are provided on the bottom of this form for your review. Please check appropriate box(s): Conflicting documentation was noted in the Medical Record, please clarify if patient is being treated/monitored for: [ ] Severe Protein Calorie Malnutrition [ x ] Moderate Protein Calorie Malnutrition [ ] Other diagnosis [ ] Unable to determine For continuity of documentation, please document condition throughout progress notes and discharge summary. Thank You. CLINICAL INDICATORS - SIGNS / SYMPTOMS/ LABS PHYSICIAN H&P 11/05: HX OF PRESENT ILLNESS: 72 YEAR OLD MALE WHO IS CACHECTIC APPEARING. ...THE PATIENT ALSO REPORTS THAT HE LOST A SIGNIFICANT AMOUNT OF WEIGHT. PHYSICAL EXAM: GENERAL: PATIENT IS CACHECTIC AND EMACIATED ASSESSMENT & PLAN: 3) SEVERE PROTEIN CALORIE MALNUTRITION. THE PATIENT WILL GIVEN ENSURE TID, REGULAR DIET WILL BE GIVEN. PHYSICIAN PN 11/06 & 5: DX/PLAN: 9) MODERATE PROTEIN CALORIE MALNUTRITION RISK FACTORS: SIGNIFICANT WEIGHT LOSS PER PATIENT HYPOALBUMINEMIA D/T PROTEIN CALORIE MALNUTRITION CACHECTIC & EMACIATED PER PHYSICIAN H&P TREATMENT: NUTRITIONAL SUPPLEMENT (ENSURE TID) MBS W/SPEECH THERAPY THANK YOU! Cassandra (This form is maintained as a part of the permanent medical record) 2014 [email or web address] All Rights Reserved Cassandra Wilde RN, BSN [email or web address] Office: [phone] [facility]
--- NOTE | 2017-11-08 16:55 | PRG ---
DATE OF SERVICE: 11/08/2017 SUBJECTIVE: Bright De Leon has no new complaints. He is very hoarse. PHYSICAL EXAMINATION: VITAL SIGNS: He is afebrile, heart rate is 83, respiratory rate 16, oximetry is 93% on 3 liters pau marcelle, blood pressure 122/66. LUNGS: Still remarkable for wheezes diffusely. HEART: Regular rhythm. ABDOMEN: Soft. EXTREMITIES: Very cachectic. IMPRESSION: 1. Chronic obstructive pulmonary disease exacerbation. 2. Chronic hypoxic respiratory failure with acute decompensation. 3. Elevated parathyroid hormone level. 4. Traumatic injury to his voice box which I guess explains his hoarseness. I have reviewed his medicines. He is on p.o. antibiotics and p.o. steroids. He tells me that he [place] es basically alone. I am not sure, #1; if it is true and #2; whether he can go back and take care of himself at this point. I would think he needs placement.
[2017-11-08] MEDS: HYDROcodone/Acetaminophen 5/325 mg Tablet PO PRN (20:00)
[2017-11-09] MEDS: Mometasone/Formoterol 120 PUFF INHALER INH SCH ×2 (06:23→18:11)
[2017-11-09] MEDS: Cefdinir 300 MG CAP PO SCH (09:47)
[2017-11-09] MEDS: predniSONE 20 MG TAB PO SCH ×2 (09:48→19:33)
[2017-11-09] MEDS: guaiFENesin ER 600 MG TAB PO SCH ×4 (09:48→19:33)
[2017-11-09] MEDS: Famotidine 20 MG TAB PO SCH ×2 (09:49→19:34)
[2017-11-09] MEDS: Cyanocobalamin (Vitamin B-12) 1,000 MCG TAB PO SCH (09:49)
[2017-11-09] MEDS: Folic Acid 1 MG TAB PO SCH (09:50)
--- NOTE | 2017-11-09 11:58 | PDOC.PN ---
- Subjective Encounter Start Date: 11/09/17 Encounter Start Time: 07:40 pt is today talking irrelevant, appears confused - Objective Resuscitation Status: Resuscitation Status FULL:Full Resuscitation MAR Reviewed: Yes Vital Signs & Weight: Vital Signs (12 hours) Temp Pulse Resp BP BP Pulse Ox 11/09/17 09:05 98.4 F 93 20 139/68 93 L 11/09/17 08:00 98.4 F 93 20 93 L 11/09/17 06:24 92 L 11/09/17 06:23 75 16 92 L 11/09/17 06:21 75 16 92 L 11/09/17 04:00 97.5 F L 95 18 134/68 96 11/09/17 00:52 95 11/09/17 00:15 94 16 96 Weight Weight 132 lb 4.8 oz I&O: 11/08/17 11/09/17 11/10/17 06:59 06:59 06:59 Intake Total 780 650 Output Total 700 Balance 80 650 Result Diagrams: 11/08/17 07:28 11/08/17 07:28 Phys Exam - Physical Examination Constitutional: NAD HEENT: PERRLA, moist MMs, sclera anicteric Neck: no JVD, supple Respiratory: no wheezing, no rales, no rhonchi reduced air entry Cardiovascular: RRR, no significant murmur, no rub Gastrointestinal: soft, non-tender, no distention, positive bowel sounds Musculoskeletal: edema present Neurological: non-focal, normal sensation Lymphatic: no nodes Psychiatric: normal affect Skin: no rash, normal turgor Dx/Plan (1) Acute on chronic respiratory failure with hypoxia and hypercapnia Code(s): J96.21 - ACUTE AND CHRONIC RESPIRATORY FAILURE WITH HYPOXIA; J96.22 - ACUTE AND CHRONIC RESPIRATORY FAILURE WITH HYPERCAPNIA Status: Acute (2) COPD exacerbation Code(s): J44.1 - CHRONIC OBSTRUCTIVE PULMONARY DISEASE W (ACUTE) EXACERBATION Status: Acute (3) Physical deconditioning Code(s): R53.81 - OTHER MALAISE Status: Acute (4) Sacral fracture Code(s): S32.10XA - UNSP FRACTURE OF SACRUM, INIT ENCNTR FOR CLOSED FRACTURE Status: Acute (5) Compression fracture of body of thoracic vertebra Code(s): S22.000A - WEDGE COMPRESSION FRACTURE OF UNSP THORACIC VERTEBRA, INIT Status: Chronic (6) Hypoalbuminemia due to protein-calorie malnutrition Code(s): E46 - UNSPECIFIED PROTEIN-CALORIE MALNUTRITION Status: Chronic (7) Macrocytosis Code(s): D75.89 - OTHER SPECIFIED DISEASES OF BLOOD AND BLOOD-FORMING ORGANS Status: Chronic (8) Osteoporosis Code(s): M81.0 - AGE-RELATED OSTEOPOROSIS W/O CURRENT PATHOLOGICAL FRACTURE Status: Chronic (9) Protein-calorie malnutrition, moderate Code(s): E44.0 - MODERATE PROTEIN-CALORIE MALNUTRITION Status: Chronic (10) Pulmonary hypertension Code(s): I27.20 - PULMONARY HYPERTENSION, UNSPECIFIED Status: Chronic (11) Thrombocytopenia Code(s): D69.6 - THROMBOCYTOPENIA, UNSPECIFIED Status: Chronic (12) Tobacco abuse Code(s): Z72.0 - TOBACCO USE Status: Chronic - Plan cont current plan of care, continue antibiotics, social sciences research scientist, respiratory therapy * will do ABG * medication reviewed as below * symptomatic treatment * continue oral prednisone and omnicef * continue respiratory therapy * await his placement. Review of Systems - Review of Systems Constitutional: weakness. negative: fever, chills, sweats, malaise, other Eyes: negative: Pain, Vision Change, Conjunctivae Inflammation, Eyelid Inflammation, Redness, Other ENT: negative: Ear Pain, Ear Discharge, Nose Pain, Nose Discharge, Nose Congestion, Mouth Pain, Mouth Swelling, Throat Pain, Throat Swelling, Other Respiratory: negative: Cough, Dry, Shortness of Breath, Hemoptysis, SOB with Excertion, Pleuritic Pain, Sputum, Wheezing Cardiovascular: negative: chest pain, palpitations, orthopnea, paroxysmal nocturnal dyspnea, edema, light headedness, other Gastrointestinal: negative: Nausea, Vomiting, Abdominal Pain, Diarrhea, Constipation, Melena, Hematochezia, Other Genitourinary: negative: Dysuria, Frequency, Incontinence, Hematuria, Retention , Other Musculoskeletal: negative: Neck Pain, Shoulder Pain, Arm Pain, Back Pain, Hand Pain, Leg Pain, Foot Pain, Other Skin: negative: Rash, Lesions, Tito, Bruising, Other Neurological: Confusion. negative: Weakness, Numbness, Incoordination, Change in Speech, Seizures, Other Other: not reliable due to his level of confusion - Medications/Allergies Allergies/Adverse Reactions: Allergies Allergy/AdvReac Type Severity Reaction Status Date / Time No Known Allergies Allergy Unverified 11/05/17 01:30 Medications: Current Medications Acetaminophen (Tylenol) 650 mg PO Q4H PRN PRN Reason: Headache/Fever or Pain Last Admin: 11/05/17 20:27 Dose: 650 mg Hydrocodone Bitart/Acetaminophen ([place] 5/325) 1 tab PO Q4H PRN PRN Reason: Moderate Pain (4-6) Last Admin: 11/08/17 20:00 Dose: 1 tab Al Hydroxide/Mg Hydroxide (Maalox) 30 ml PO Q6H PRN PRN Reason: Heartburn or Indigestion Albuterol/Ipratropium (Duoneb) 3 ml NEB [id number] [facility] Last Admin: 11/09/17 06:21 Dose: 3 ml Albuterol/Ipratropium (Duoneb) 3 ml NEB [id number] PRN PRN Reason: SOB &/or Wheezing Artificial Tears (Tears Naturale) 0 drop EA EYE PRN PRN PRN Reason: Dry Eyes Cefdinir (Omnicef) 600 mg PO DAILY [facility] Last Admin: 11/09/17 09:47 Dose: 600 mg Cyanocobalamin (Vitamin B-12) 1,000 mcg PO DAILY [facility] Last Admin: 11/09/17 09:49 Dose: 1,000 mcg Famotidine (Pepcid) 20 mg PO BID [facility] Last Admin: 11/09/17 09:49 Dose: 20 mg Folic Acid (Folvite) 1 mg PO DAILY [facility] Last Admin: 11/09/17 09:50 Dose: 1 mg Guaifenesin (Mucinex) 600 mg PO QID [facility] Last Admin: 11/09/17 09:48 Dose: 600 mg Hydralazine HCl (Apresoline) 10 mg SLOW IVP Q4H PRN PRN Reason: Systolic BP > 180 Loperamide HCl (Imodium) 2 mg PO PRN PRN PRN Reason: Diarrhea/Loose Stools Loratadine (Claritin) 10 mg PO DAILYPRN PRN PRN Reason: Sinus Symptoms Magnesium Hydroxide (Milk Of Magnesium) 30 ml PO DAILYPRN PRN PRN Reason: Constipation Mineral Oil/White Petrolatum (Eucerin Cream) 0 gm TOP BIDPRN PRN PRN Reason: Dry Skin Mometasone Furoate/Formoterol Fumar (Dulera 200 Mcg/5 Mcg Inhaler) 2 puff INH BID-RT [facility] Last Admin: 11/09/17 06:23 Dose: 2 puff Ondansetron HCl (Zofran Odt) 4 mg PO Q6H PRN PRN Reason: Nausea/Vomiting Ondansetron HCl (Zofran) 4 mg IVP Q6H PRN PRN Reason: Nausea/Vomiting Phenol (Chloraseptic [place] 180 Ml Bot) 0 ml PO PRN PRN PRN Reason: Sore Throat Prednisone (Prednisone) 20 mg PO BID [facility] Last Admin: 11/09/17 09:48 Dose: 20 mg Senna (Senokot) 2 tab PO HSPRN PRN PRN Reason: Constipation Sodium Chloride ([place] Nasal [place] 0.65%) 0 ml EA NARE QIDPRN PRN PRN Reason: Nasal Congestion Zolpidem Tartrate (Ambien) 5 mg PO HSPRN PRN PRN Reason: Insomnia
[2017-11-09 13:21] LABS: pH, Arterial 7.38 (7.35-7.45)
[2017-11-09 13:22] LABS: Actual Bicarbonate (HCO3a) 43.6 mEq/L (22-28); Base Excess (BEa) 14.3 mEq/L (-2.0 to +3.0); CO2 Tension 75.7 mmHg (35.0-45.0); Hemoglobin (Hb) 15.2 g/dL (14.0-18.0); O2 Tension (PaO2) 66.3 mmHg (> 70.0)
[2017-11-09 13:23] LABS: Calcium, Ionized 1.2 mmol/L (1.12-1.30); Puncture Site RR
[2017-11-09] MEDS: HYDROcodone/Acetaminophen 5/325 mg Tablet PO PRN (19:34)
--- NOTE | 2017-11-09 21:22 | PRG ---
DATE OF SERVICE: 11/09/2017 SUBJECTIVE: Bright De Leon has no complaints. He says he feels a little better. OBJECTIVE: VITAL SIGNS: He is afebrile, heart rate is 93, respiratory rate is 20, oximetry is 93% on 3 liters, blood pressure 139/68. LUNGS: Remarkable for wheezes today. CARDIOVASCULAR: Regular rhythm. ABDOMEN: Soft. IMPRESSION: 1. Chronic obstructive pulmonary disease exacerbation. 2. Chronic hypoxic respiratory failure with acute decompensation. 3. Elevated parathyroid hormone level. 4. Will follow the other physicians.
[2017-11-09] MEDS: Zolpidem Tartrate 5 MG TAB PO PRN (22:06)
[2017-11-10 05:25] LABS: BUN (Urea Nitrogen) 14 mg/dL (8.4-25.7); Calc. Creatinine Clearance 89 mL/min (70-130); Calcium 9.1 mg/dL (7.8-10.44); Estimated GFR-MDRD Greater than 90; Glucose 101 mg/dL (83-110)
[2017-11-10 05:37] LABS: Anion Gap 13 mmol/L (10-20); Carbon Dioxide 37 mmol/L (23-31); Chloride 89 mmol/L (98-107); Potassium 5.1 mmol/L (3.5-5.1); Sodium 134 mmol/L (136-145)
[2017-11-10] MEDS: Mometasone/Formoterol 120 PUFF INHALER INH SCH ×2 (06:27→18:30)
[2017-11-10 06:49] LABS: #Lymphocytes 0.3 thou/uL (1.20-3.40); #Monocytes 0.3 thou/uL (0.11-0.59); #Neutrophils 2.9 thou/uL (1.40-6.50); %Eosinophils 0.7 % (0.0-10.0); %Lymphocytes 9.6 % (21.0-51.0); %Monocytes 9.3 % (0.0-10.0); %Neutrophils 80.4 % (42.0-75.0); Hemoglobin 14.1 g/dL (14.0-18.0); MDiff Complete? YES; Macrocytosis SLIGHT = 6-15 cells (100X) (0-5/hpf); Mean Corpuscular HGB CONC 31.5 g/dL (32.0-36.0); Mean Corpuscular Hemoglobin 35.1 pg (27.0-31.0); Mean Platelet Volume 9.5 fL (7.4-10.4); PLT Morphology Comment Appears Decreased; Platelet Count 54 thou/uL (130-400); RBC Distribution Width 13.6 % (11.5-14.5); Red Blood Cell (RBC) Count 4.02 mill/uL (4.70-6.10); White Blood Cell (WBC) Count 3.6 thou/uL (4.8-10.8)
--- NOTE | 2017-11-10 08:55 | PDOC.PN ---
- Subjective Encounter Start Date: 11/10/17 Encounter Start Time: 07:30 Patient seen and examined. No new complaints. No overnight events he is very weak, he has cough - Objective Resuscitation Status: Resuscitation Status FULL:Full Resuscitation MAR Reviewed: Yes Vital Signs & Weight: Vital Signs (12 hours) Temp Pulse Resp BP BP Pulse Ox 11/10/17 08:41 98.0 F 112 H 16 121/64 89 L 11/10/17 06:45 100 11/10/17 06:27 82 16 100 11/10/17 06:25 83 16 100 11/10/17 03:44 97.9 F 84 18 165/92 H 100 11/10/17 01:11 84 16 100 11/10/17 00:07 79 16 Weight Weight 132 lb 4.8 oz I&O: 11/09/17 11/10/17 11/11/17 06:59 06:59 06:59 Intake Total 650 620 Balance 650 620 Result Diagrams: 11/10/17 04:04 11/10/17 04:04 Phys Exam - Physical Examination Constitutional: NAD HEENT: PERRLA, moist MMs, sclera anicteric Neck: no JVD, supple gurgling sound in his throat Respiratory: no wheezing, no rales, no rhonchi reduced air entry both side Cardiovascular: RRR, no significant murmur, no rub Gastrointestinal: soft, non-tender, no distention, positive bowel sounds Musculoskeletal: no edema, pulses present Neurological: non-focal, normal sensation Lymphatic: no nodes Psychiatric: normal affect Skin: no rash, normal turgor Dx/Plan (1) Acute on chronic respiratory failure with hypoxia and hypercapnia Code(s): J96.21 - ACUTE AND CHRONIC RESPIRATORY FAILURE WITH HYPOXIA; J96.22 - ACUTE AND CHRONIC RESPIRATORY FAILURE WITH HYPERCAPNIA Status: Acute (2) COPD exacerbation Code(s): J44.1 - CHRONIC OBSTRUCTIVE PULMONARY DISEASE W (ACUTE) EXACERBATION Status: Acute (3) Physical deconditioning Code(s): R53.81 - OTHER MALAISE Status: Acute (4) Sacral fracture Code(s): S32.10XA - UNSP FRACTURE OF SACRUM, INIT ENCNTR FOR CLOSED FRACTURE Status: Acute (5) Compression fracture of body of thoracic vertebra Code(s): S22.000A - WEDGE COMPRESSION FRACTURE OF UNSP THORACIC VERTEBRA, INIT Status: Chronic (6) Hypoalbuminemia due to protein-calorie malnutrition Code(s): E46 - UNSPECIFIED PROTEIN-CALORIE MALNUTRITION Status: Chronic (7) Macrocytosis Code(s): D75.89 - OTHER SPECIFIED DISEASES OF BLOOD AND BLOOD-FORMING ORGANS Status: Chronic (8) Osteoporosis Code(s): M81.0 - AGE-RELATED OSTEOPOROSIS W/O CURRENT PATHOLOGICAL FRACTURE Status: Chronic (9) Protein-calorie malnutrition, moderate Code(s): E44.0 - MODERATE PROTEIN-CALORIE MALNUTRITION Status: Chronic (10) Pulmonary hypertension Code(s): I27.20 - PULMONARY HYPERTENSION, UNSPECIFIED Status: Chronic (11) Thrombocytopenia Code(s): D69.6 - THROMBOCYTOPENIA, UNSPECIFIED Status: Chronic (12) Tobacco abuse Code(s): Z72.0 - TOBACCO USE Status: Chronic (13) Hyperkalemia Code(s): E87.5 - HYPERKALEMIA Status: Resolved (14) Compensated respiratory acidosis Code(s): E87.2 - ACIDOSIS Status: Chronic - Plan cont current plan of care, continue antibiotics, PT/OT, adoption social worker, respiratory therapy, DVT proph w/SCDs * continue omnicef, prednisone * today will consult to look at his upper airway as he has hoarseness * medication reviewed as below * symptomatic treatment * he needs placement and we are waiting for that * 2 lit [place] oxygen only * continue PT. Review of Systems - Review of Systems Constitutional: weakness. negative: fever, chills, sweats, malaise, other ENT: negative: Ear Pain, Ear Discharge, Nose Pain, Nose Discharge, Nose Congestion, Mouth Pain, Mouth Swelling, Throat Pain, Throat Swelling, Other Respiratory: Cough, Shortness of Breath, SOB with Excertion. negative: Dry, Hemoptysis, Pleuritic Pain, Sputum, Wheezing Cardiovascular: negative: chest pain, palpitations, orthopnea, paroxysmal nocturnal dyspnea, edema, light headedness, other Gastrointestinal: negative: Nausea, Vomiting, Abdominal Pain, Diarrhea, Constipation, Melena, Hematochezia, Other Genitourinary: negative: Dysuria, Frequency, Incontinence, Hematuria, Retention , Other Musculoskeletal: negative: Neck Pain, Shoulder Pain, Arm Pain, Back Pain, Hand Pain, Leg Pain, Foot Pain, Other Skin: negative: Rash, Lesions, Tito, Bruising, Other - Medications/Allergies Allergies/Adverse Reactions: Allergies Allergy/AdvReac Type Severity Reaction Status Date / Time No Known Allergies Allergy Unverified 11/05/17 01:30 Medications: Current Medications Acetaminophen (Tylenol) 650 mg PO Q4H PRN PRN Reason: Headache/Fever or Pain Last Admin: 11/05/17 20:27 Dose: 650 mg Hydrocodone Bitart/Acetaminophen ([place] 5/325) 1 tab PO Q4H PRN PRN Reason: Moderate Pain (4-6) Last Admin: 11/09/17 19:34 Dose: 1 tab Al Hydroxide/Mg Hydroxide (Maalox) 30 ml PO Q6H PRN PRN Reason: Heartburn or Indigestion Albuterol/Ipratropium (Duoneb) 3 ml NEB [id number] [facility] Last Admin: 11/10/17 06:25 Dose: 3 ml Albuterol/Ipratropium (Duoneb) 3 ml NEB [id number] PRN PRN Reason: SOB &/or Wheezing Artificial Tears (Tears Naturale) 0 drop EA EYE PRN PRN PRN Reason: Dry Eyes Cefdinir (Omnicef) 600 mg PO DAILY [facility] Last Admin: 11/09/17 09:47 Dose: 600 mg Cyanocobalamin (Vitamin B-12) 1,000 mcg PO DAILY [facility] Last Admin: 11/09/17 09:49 Dose: 1,000 mcg Famotidine (Pepcid) 20 mg PO BID [facility] Last Admin: 11/09/17 19:34 Dose: Not Given Folic Acid (Folvite) 1 mg PO DAILY [facility] Last Admin: 11/09/17 09:50 Dose: 1 mg Guaifenesin (Mucinex) 600 mg PO QID [facility] Last Admin: 11/09/17 19:33 Dose: 600 mg Hydralazine HCl (Apresoline) 10 mg SLOW IVP Q4H PRN PRN Reason: Systolic BP > 180 Loperamide HCl (Imodium) 2 mg PO PRN PRN PRN Reason: Diarrhea/Loose Stools Loratadine (Claritin) 10 mg PO DAILYPRN PRN PRN Reason: Sinus Symptoms Magnesium Hydroxide (Milk Of Magnesium) 30 ml PO DAILYPRN PRN PRN Reason: Constipation Mineral Oil/White Petrolatum (Eucerin Cream) 0 gm TOP BIDPRN PRN PRN Reason: Dry Skin Mometasone Furoate/Formoterol Fumar (Dulera 200 Mcg/5 Mcg Inhaler) 2 puff INH BID-RT [facility] Last Admin: 11/10/17 06:27 Dose: 2 puff Ondansetron HCl (Zofran Odt) 4 mg PO Q6H PRN PRN Reason: Nausea/Vomiting Ondansetron HCl (Zofran) 4 mg IVP Q6H PRN PRN Reason: Nausea/Vomiting Phenol (Chloraseptic [place] 180 Ml Bot) 0 ml PO PRN PRN PRN Reason: Sore Throat Prednisone (Prednisone) 20 mg PO BID [facility] Last Admin: 11/09/17 19:33 Dose: 20 mg Senna (Senokot) 2 tab PO HSPRN PRN PRN Reason: Constipation Sodium Chloride ([place] Nasal [place] 0.65%) 0 ml EA NARE QIDPRN PRN PRN Reason: Nasal Congestion Zolpidem Tartrate (Ambien) 5 mg PO HSPRN PRN PRN Reason: Insomnia Last Admin: 11/09/17 22:06 Dose: 5 mg
[2017-11-10] MEDS: guaiFENesin ER 600 MG TAB PO SCH ×4 (09:19→19:31)
[2017-11-10] MEDS: Cyanocobalamin (Vitamin B-12) 1,000 MCG TAB PO SCH (09:19)
[2017-11-10] MEDS: Cefdinir 300 MG CAP PO SCH (09:19)
[2017-11-10] MEDS: predniSONE 20 MG TAB PO SCH ×2 (09:19→19:30)
[2017-11-10] MEDS: Folic Acid 1 MG TAB PO SCH (09:19)
[2017-11-10] MEDS: Famotidine 20 MG TAB PO SCH ×2 (09:19→19:30)
--- NOTE | 2017-11-10 17:07 | PRG ---
DATE OF SERVICE: 11/10/2017 Bright De Leon is in no distress. PHYSICAL EXAMINATION: VITAL SIGNS: Afebrile, heart rate 70, respiratory rate 16, oximetry is 97 on 3 L, blood pressure 121 /64. LUNGS: Clear today. HEART: Regular rhythm. ABDOMEN: Soft. He says he is feeling better. IMPRESSION: 1. Chronic obstructive pulmonary disease exacerbation, improved. 2. Extreme deconditioning with cachexia. PLAN: Continue supportive care.
[2017-11-10] MEDS: HYDROcodone/Acetaminophen 5/325 mg Tablet PO PRN (19:30)
[2017-11-10] MEDS: Zolpidem Tartrate 5 MG TAB PO PRN (23:29)
[2017-11-11] MEDS: Mometasone/Formoterol 120 PUFF INHALER INH SCH (06:32)
[2017-11-11] MEDS: predniSONE 20 MG TAB PO SCH (08:25)
[2017-11-11] MEDS: Cyanocobalamin (Vitamin B-12) 1,000 MCG TAB PO SCH (08:25)
[2017-11-11] MEDS: Cefdinir 300 MG CAP PO SCH (08:25)
[2017-11-11] MEDS: Folic Acid 1 MG TAB PO SCH (08:25)
[2017-11-11] MEDS: guaiFENesin ER 600 MG TAB PO SCH ×2 (08:25→11:51)
[2017-11-11] MEDS: Famotidine 20 MG TAB PO SCH (08:25)
--- NOTE | 2017-11-11 09:53 | PDOC.PN ---
- Subjective Encounter Start Date: 11/11/17 Encounter Start Time: 07:30 Patient seen and examined. No new complaints. No overnight events - Objective Resuscitation Status: Resuscitation Status FULL:Full Resuscitation MAR Reviewed: Yes Vital Signs & Weight: Vital Signs (12 hours) Temp Pulse Resp BP BP Pulse Ox 11/11/17 07:40 98.6 F 105 H 16 120/73 91 L 11/11/17 06:34 100 16 11/11/17 03:22 80 18 98 11/10/17 23:59 93 18 96 11/10/17 23:26 97.8 F 90 18 149/79 H 98 Weight Weight 132 lb 4.8 oz I&O: 11/10/17 11/11/17 11/12/17 06:59 06:59 06:59 Intake Total 620 920 180 Balance 620 920 180 Result Diagrams: 11/10/17 04:04 11/10/17 04:04 Phys Exam - Physical Examination Constitutional: NAD HEENT: PERRLA, moist MMs, sclera anicteric Neck: no JVD, supple Respiratory: no wheezing, no rales, no rhonchi Cardiovascular: RRR, no significant murmur, no rub Gastrointestinal: soft, non-tender, no distention, positive bowel sounds Musculoskeletal: no edema, pulses present Neurological: non-focal, normal sensation Psychiatric: normal affect Skin: no rash, normal turgor Dx/Plan (1) Acute on chronic respiratory failure with hypoxia and hypercapnia Code(s): J96.21 - ACUTE AND CHRONIC RESPIRATORY FAILURE WITH HYPOXIA; J96.22 - ACUTE AND CHRONIC RESPIRATORY FAILURE WITH HYPERCAPNIA Status: Acute (2) COPD exacerbation Code(s): J44.1 - CHRONIC OBSTRUCTIVE PULMONARY DISEASE W (ACUTE) EXACERBATION Status: Acute (3) Physical deconditioning Code(s): R53.81 - OTHER MALAISE Status: Acute (4) Sacral fracture Code(s): S32.10XA - UNSP FRACTURE OF SACRUM, INIT ENCNTR FOR CLOSED FRACTURE Status: Acute (5) Compression fracture of body of thoracic vertebra Code(s): S22.000A - WEDGE COMPRESSION FRACTURE OF UNSP THORACIC VERTEBRA, INIT Status: Chronic (6) Hypoalbuminemia due to protein-calorie malnutrition Code(s): E46 - UNSPECIFIED PROTEIN-CALORIE MALNUTRITION Status: Chronic (7) Macrocytosis Code(s): D75.89 - OTHER SPECIFIED DISEASES OF BLOOD AND BLOOD-FORMING ORGANS Status: Chronic (8) Osteoporosis Code(s): M81.0 - AGE-RELATED OSTEOPOROSIS W/O CURRENT PATHOLOGICAL FRACTURE Status: Chronic (9) Protein-calorie malnutrition, moderate Code(s): E44.0 - MODERATE PROTEIN-CALORIE MALNUTRITION Status: Chronic (10) Pulmonary hypertension Code(s): I27.20 - PULMONARY HYPERTENSION, UNSPECIFIED Status: Chronic (11) Thrombocytopenia Code(s): D69.6 - THROMBOCYTOPENIA, UNSPECIFIED Status: Chronic (12) Tobacco abuse Code(s): Z72.0 - TOBACCO USE Status: Chronic (13) Hyperkalemia Code(s): E87.5 - HYPERKALEMIA Status: Resolved (14) Compensated respiratory acidosis Code(s): E87.2 - ACIDOSIS Status: Chronic (15) Soft hoarse voice Code(s): R49.0 - DYSPHONIA Status: Chronic - Plan cont current plan of care, continue antibiotics, PT/OT, social media job titles, respiratory therapy * medication reviewed as below * symptomatic treatment * he will need placement, he will need oxygen [facility] * i spoke with family preservation caseworker to arrange. Review of Systems - Review of Systems Constitutional: weakness. negative: fever, chills, sweats, malaise, other ENT: negative: Ear Pain, Ear Discharge, Nose Pain, Nose Discharge, Nose Congestion, Mouth Pain, Mouth Swelling, Throat Pain, Throat Swelling, Other Respiratory: Cough, Shortness of Breath, SOB with Excertion. negative: Dry, Hemoptysis, Pleuritic Pain, Sputum, Wheezing Cardiovascular: negative: chest pain, palpitations, orthopnea, paroxysmal nocturnal dyspnea, edema, light headedness, other Gastrointestinal: negative: Nausea, Vomiting, Abdominal Pain, Diarrhea, Constipation, Melena, Hematochezia, Other Genitourinary: negative: Dysuria, Frequency, Incontinence, Hematuria, Retention , Other Musculoskeletal: negative: Neck Pain, Shoulder Pain, Arm Pain, Back Pain, Hand Pain, Leg Pain, Foot Pain, Other Skin: negative: Rash, Lesions, Tito, Bruising, Other - Medications/Allergies Allergies/Adverse Reactions: Allergies Allergy/AdvReac Type Severity Reaction Status Date / Time No Known Allergies Allergy Unverified 11/05/17 01:30 Medications: Current Medications Acetaminophen (Tylenol) 650 mg PO Q4H PRN PRN Reason: Headache/Fever or Pain Last Admin: 11/05/17 20:27 Dose: 650 mg Hydrocodone Bitart/Acetaminophen ([place] 5/325) 1 tab PO Q4H PRN PRN Reason: Moderate Pain (4-6) Last Admin: 11/10/17 19:30 Dose: 1 tab Al Hydroxide/Mg Hydroxide (Maalox) 30 ml PO Q6H PRN PRN Reason: Heartburn or Indigestion Albuterol/Ipratropium (Duoneb) 3 ml NEB [id number] [facility] Last Admin: 11/11/17 06:34 Dose: 3 ml Albuterol/Ipratropium (Duoneb) 3 ml NEB [id number] PRN PRN Reason: SOB &/or Wheezing Artificial Tears (Tears [place]atur[place]) 0 drop EA EYE PRN PRN PRN Reason: Dry Eyes Cefdinir (Omnicef) 600 mg PO DAILY [facility] Last Admin: 11/11/17 08:25 Dose: 600 mg Cyanocobalamin (Vitamin B-12) 1,000 mcg PO DAILY [facility] Last Admin: 11/11/17 08:25 Dose: 1,000 mcg Famotidine (Pepcid) 20 mg PO BID [facility] Last Admin: 11/11/17 08:25 Dose: 20 mg Folic Acid (Folvite) 1 mg PO DAILY [facility] Last Admin: 11/11/17 08:25 Dose: 1 mg Guaifenesin (Mucinex) 600 mg PO QID [facility] Last Admin: 11/11/17 08:25 Dose: 600 mg Hydralazine HCl (Apresoline) 10 mg SLOW IVP Q4H PRN PRN Reason: Systolic BP > 180 Loperamide HCl (Imodium) 2 mg PO PRN PRN PRN Reason: Diarrhea/Loose Stools Loratadine (Claritin) 10 mg PO DAILYPRN PRN PRN Reason: Sinus Symptoms Magnesium Hydroxide (Milk Of Magnesium) 30 ml PO DAILYPRN PRN PRN Reason: Constipation Mineral Oil/White Petrolatum (Eucerin Cream) 0 gm TOP BIDPRN PRN PRN Reason: Dry Skin Mometasone Furoate/Formoterol Fumar (Dulera 200 Mcg/5 Mcg Inhaler) 2 puff INH BID-RT [facility] Last Admin: 11/11/17 06:32 Dose: 2 puff Ondansetron HCl (Zofran Odt) 4 mg PO Q6H PRN PRN Reason: Nausea/Vomiting Ondansetron HCl (Zofran) 4 mg IVP Q6H PRN PRN Reason: Nausea/Vomiting Phenol (Chloraseptic [place] 180 Ml Bot) 0 ml PO PRN PRN PRN Reason: Sore Throat Prednisone (Prednisone) 20 mg PO BID [facility] Last Admin: 11/11/17 08:25 Dose: 20 mg Senna (Senokot) 2 tab PO HSPRN PRN PRN Reason: Constipation Sodium Chloride ([place] Nasal [place] 0.65%) 0 ml EA NARE QIDPRN PRN PRN Reason: Nasal Congestion Zolpidem Tartrate (Ambien) 5 mg PO HSPRN PRN PRN Reason: Insomnia Last Admin: 11/10/17 23:29 Dose: 5 mg
--- NOTE | 2017-11-11 10:07 | PRG ---
DATE OF SERVICE: 11/11/2017 He looks comfortable and in no distress, still has extreme difficult time phonating. PHYSICAL EXAMINATION: VITAL SIGNS: His temperature is 98.6, pulse 105, respiration 16, O2 sat 91% on 1.5 liters, blood pre ssure 120/73. HEENT: Unremarkable. NECK: Without adenopathy or JVD. He has some congestion/upper airway noises. LUNGS: Lungs peripherally demonstrate no wheezing. CARDIAC: S1 and S2 regular. ABDOMEN: Soft. EXTREMITIES: No edema. ASSESSMENT: 1. Chronic obstructive pulmonary disease with exacerbation. 2. Probable vocal cord dysfunction. RECOMMENDATIONS: 1. Agree with ENT consultation - await their findings. 2. From a pulmonary standpoint, he is stable for discharge.
--- NOTE | 2017-11-11 14:46 | DIS ---
DATE OF ADMISSION: 11/04/2017 DATE OF DISCHARGE: 11/11/2017 PRIMARY CARE PHYSICIAN: [facility] Call admission. DISCHARGE DISPOSITION: [facility] unit. PRIMARY DISCHARGE DIAGNOSES: Chronic obstructive pulmonary disease exacerbation, acute on chronic re spiratory failure with hypoxia and hypercapnia, physical deconditioning, sacral fracture, compensated respiratory acidosis, compression fracture of body of thoracic vertebra, hypoalbuminemia due to prot ein calorie malnutrition, moderate to severe protein calorie malnutrition, pulmonary hypertension, so ft hoarse voice, thrombocytopenia, hyperkalemia, resolved. SECONDARY DISCHARGE DIAGNOSES: Tobacco abuse disorder, osteoporosis. PRIMARY PROCEDURE AND OPERATION: None. RADIOLOGICAL INVESTIGATION: Lumbar spine CT scan showed S2 vertebral body fracture, compression defo rmity of thoracic vertebral body, bilateral pleural effusion, anasarca, diffuse osteopenia. Modified barium swallow study was performed with the speech therapy. Echocardiography showed normal EF. SIGNIFICANT LABORATORY DATA: WBC 3.6, hemoglobin 14.1, MCV 111, platelet 54, pCO2 75.7, O2 66.3, bic arbonate 43.6 saturation 93.4. Sodium 134, potassium 5.1, BUN 14, creatinine 0.63, calcium 9.1, phos phorus 3.2, magnesium 2.4. B12 446. Folate 11.8. TSH 0.44. PTH 95.0. Vitamin D level 31.1. Hepa titis profile negative. DISCHARGE MEDICATIONS: Omnicef 300 mg p.o. b.i.d. for 5 days, vitamin B12 1000 mcg p.o. daily, Pepci d 20 mg p.o. b.i.d., folic acid 1 mg p.o. daily, Mucinex 600 mg 4 times daily, DuoNeb q.6 hourly and p.r.n., Dulera 2 puffs inhalation b.i.d., prednisone 20 mg p.o. b.i.d. for 5 days. CONTRAINDICATIONS: None. CODE STATUS: FULL CODE. INPATIENT CONSULTANTS: Dr. Burnette was following while in hospital. Dr. Foreign Carrero was consul bharti for a sacral fracture. TEST RESULTS PENDING ON DISCHARGE: None. ALLERGIES: No known drug allergy. DISCHARGE PLAN: Post hospital, the patient is instructed to follow up with the ENT doctor as an outp atient basis. Patient will follow up with Dr. Burnette and Dr. Carrero as instructed. HOSPITAL COURSE: A 72-year-old male with the above mentioned medical problem who was admitted by me on 11/05/2017. Please see my HPI for further details. This patient was not knowing on admission ara t he has COPD, but he was appeared cachectic. He was poor historian. He had a CT angiography, which was done for elevated D-dimer, which was negative for PE, but it showed severe lung emphysema. He a lso had chronic lung changes in left lower lobe and pulmonary hypertension as well as mucus throughou t the distal trachea. In the emergency room, he was hypoxic. He was having very difficulty coughing out. He was also appeared cachectic. We found that this patient has a COPD exacerbation. He has chronic respiratory acidosis with metabol ic compensation. We treated him with Solu-Medrol, empiric antibiotic therapy with cefepime, Levaquin , and Mucinex. Pulmonary group was consulted. During this admission, we also did ABG and that also confirmed a respiratory acidosis with metabolic compensation. This patient has chronic hoarseness of voice and that is why I tried to consult ENT do ctor, but I spoke with ENT doctor and they said like they will prefer him to be evaluated in the clin ic rather than here in hospital because he will need endoscopic testing. This patient has chronic pr oblem and that is why he is instructed to follow up with ENT doctor as an outpatient basis. He has physical deconditioning and that is why family member and patient was interested in going to [facility] for more strengthening and with help of director of casework, we arranged intermediate home. The patient also has protein calorie malnutrition and that is why he was getting nutritional suppleme ntation while in hospital. The patient was given counseling to avoid smoking and passive exposure of smoking was also advised to avoid. Patient also had frequent falls at home and he was having more tailbone pain and that is why we did C T lumbar spine, which showed sacral fracture as well as compression deformity in thoracic spine. He had elevated BNP and that is why we did echocardiogram, which showed normal EF. We are suspecting his BNP elevated is from pulmonary hypertension. He had leukopenia, thrombocytopenia, macrocytosis and that is why we started B12, folate therapy. This patient is hemodynamically stable. He requires oxygen. He has now chronic respiratory failure. He also had oropharyngeal dysphagia and that is why we have to do Speech Therapy consultation and [facility] modified his diet as above. The patient is seen and examined at bedside today. At this point, the patient is pretty much stable for discharge with above-mentioned medications. He needs more nutritional support, more therapy to g et stronger and then he can go home with home health from [facility]. Please see my progress note from today for further detail. Total time spent on discharge day 31 minutes.
[2017-11-11 16:08] VITALS: BP 121/66; TEMP 98.5
== END 2017-11-11 16:23 | DRG 189 ==
LOC: ERS 21:15 → T4-A 22:00
PROVIDERS: ADMIT Internal Medicine; ATTEND Internal Medicine
DX: J96.21 Acute and chronic respiratory failure with hypoxia (principal); S32.10XA Unspecified fracture of sacrum, initial encounter for closed fracture; J44.1 Chronic obstructive pulmonary disease with (acute) exacerbation; E44.0 Moderate protein-calorie malnutrition; E87.2 Acidosis; Z68.20 Body mass index [BMI] 20.0-20.9, adult; F17.210 Nicotine dependence, cigarettes, uncomplicated; D69.6 Thrombocytopenia, unspecified; J96.22 Acute and chronic respiratory failure with hypercapnia; R49.0 Dysphonia; E87.5 Hyperkalemia; E88.09 Other disorders of plasma-protein metabolism, not elsewhere classified; I27.20 Pulmonary hypertension, unspecified; Z96.642 Presence of left artificial hip joint; W19.XXXA Unspecified fall, initial encounter
CPT/HCPCS: 36415; 36416; 72131; 74230; 80048; 80053; 80074; 82306; 82607; 82746; 82805; 83735; 83970; 84100; 84443; 84484; 85025; 93005; 93010; 93306; 94640; 94760; 96360; 99406; G8978-GP-CL; G8979-GP-CJ; G8987-GO-CK; G8988-GO-CI; G8996-GN-CK; G8997-GN-CI; J0696; J1956; J2543; J2920; J7050; J7506; J7620; P9047

== ENCOUNTER 2017-11-16 21:03 | Inpatient (IN) | payer MEDICARE ==
[2017-11-16] MEDS ORDERED: Norepinephrine 8 MG/0.9% NS 250 ML ONE (21:09)
[2017-11-16] MEDS ORDERED: Albuterol Sulfate 2.5 mg/3 ml Neb ONE (21:26)
[2017-11-16] MEDS ORDERED: fentaNYL Citrate/PF 2,000 MCG in Sodium Chloride 0.9% 60 ML IV SCH (21:29)
[2017-11-16 21:44] LABS: Actual Bicarbonate (HCO3a) 31.1 mEq/L (22-28); CO2 Tension 58.1 mmHg (35.0-45.0); O2 Tension (PaO2) 54.7 mmHg (> 70.0); pH, Arterial 7.35 (7.35-7.45)
[2017-11-16 21:45] LABS: Analyzer IN Cardio ER; Base Excess (BEa) 3.8 mEq/L (-2.0 to +3.0); Calcium, Ionized 1.1 mmol/L (1.12-1.30); Hematocrit-ABG 47.6 % (42.0-52.0); Puncture Site R RADIAL
[2017-11-16 21:46] LABS: ALV-art Gradient 585.675 (0-20)
[2017-11-16 21:49] LABS: ALT (SGPT) 17 U/L (8-55); AST (SGOT) 19 U/L (5-34); Albumin 2.5 g/dL (3.4-4.8); Alkaline Phosphatase 49 U/L (40-150); Anion Gap 18 mmol/L (10-20); BUN (Urea Nitrogen) 41 mg/dL (8.4-25.7); Bilirubin, Total 0.9 mg/dL (0.2-1.2); CK (CPK) 27 U/L (30-200); Calc. Creatinine Clearance 0 mL/min (70-130); Carbon Dioxide 28 mmol/L (23-31); Chloride 98 mmol/L (98-107); Estimated GFR-MDRD 45; Globulin 2.3 g/dL (2.4-3.5); Glucose 84 mg/dL (83-110); Potassium 4.7 mmol/L (3.5-5.1); Protein, Total 4.8 g/dL (5.8-8.1); Sodium 139 mmol/L (136-145)
[2017-11-16 21:54] LABS: Base Excess-Venous 4.2 mmol/L (0 (+/- 2.5)); Bicarbonate (HCO3v) 36.6 mmol/L (1.0-85.0); CO2 Tension (PvCO2) 94.1 mmHg (41.0-51.0); Calcium, Ionized 1.03 mmol/L (1.12-1.32); Hemoglobin - Calc 16.8 g/dL (12.0-18.0); Lactate 2.34 mmol/L (0.50-2.20); O2 Tension (PvO2) 45.5 mmHg (35.0-45.0); Potassium 4.4 mmol/L (3.4-4.7); T. Carbon Dioxide 39.5 mmol/L (1.0-85.0); pH (Venous) 7.198 (7.35-7.45); vO2 Saturation-calc 67.6 % (94-98)
[2017-11-16 21:54] LABS: Band 24 % (5-11); Hemoglobin 14.2 g/dL (14.0-18.0); Lymphocytes 13 % (21-51); MDiff Complete? YES; Mean Corpuscular HGB CONC 29.7 g/dL (32.0-36.0); Mean Corpuscular Hemoglobin 33.9 pg (27.0-31.0); Mean Platelet Volume 9.9 fL (7.4-10.4); Monocytes 31 % (0-10); Neutrophil 32 % (42-75); PLT Morphology Comment Appears Decreased; Platelet Count 50 thou/uL (130-400); RBC Distribution Width 13.5 % (11.5-14.5); Red Blood Cell (RBC) Count 4.18 mill/uL (4.70-6.10); White Blood Cell (WBC) Count 5.6 thou/uL (4.8-10.8)
[2017-11-17 00:39] LABS: Bilirubin Negative (Negative); Blood, Urine Large (Negative); Clarity CLOUDY (Clear); Glucose, Urine (Dipstick) Negative (Negative); Leukocyte Negative (Negative); Nitrite Negative (Negative); Protein, Urine (Dipstick) Negative (Neg-Trace); Specific Gravity, Urine 1.004 (1.002-1.036); Urobilinogen 0.2 mg/dL (0.2-1.0); pH, Urine 5.5 (5.0-9.0)
[2017-11-17 00:43] LABS: Pathc Cast-AUWi Flag 0.14 (0-2.49)
[2017-11-17] MEDS ORDERED: Cefepime 2 GM VIAL ONE (00:55)
[2017-11-17] MEDS ORDERED: Acetaminophen 325 MG Suppository PR PRN (00:59)
[2017-11-17] MEDS ORDERED: CCU Electrolyte Replacement 1 EACH IVPB ONE (00:59)
[2017-11-17] MEDS ORDERED: Midazolam HCl 2 mg/2 ml Vial ONE (01:01)
[2017-11-17 01:03] LABS: Bacteria/HPF 1+ HPF (None Seen); Hyaline Casts/LPF NONE SEEN LPF (0-3 Hyaline); Squamous Epithelial 0-3 HPF (0-3)
[2017-11-17] MEDS ORDERED: Vancomycin HCl 1.5 GM in Sodium Chloride 0.9% 250 ML 300 ML IVPB SCH (01:15)
[2017-11-17] MEDS ORDERED: Lorazepam 2 MG/ML VIAL SLOW IVP PRN (01:23)
[2017-11-17] MEDS ORDERED: Fentanyl BOLUS 250 ML IVPB PRN (01:23)
[2017-11-17] MEDS ORDERED: DISCONTINUE PREVIOUS NARCOTIC PAIN MEDICATIONS AND BENZODIAZEPINES FS SCH (01:23)
[2017-11-17] MEDS ORDERED: Propofol 1,000 MG/100 ML VIAL IV PRN (01:23)
[2017-11-17] MEDS ORDERED: Propofol BOLUS 1,000 MG/100 ML VIAL IV PRN (01:23)
[2017-11-17] MEDS ORDERED: Magnesium Oxide 400 MG TAB PO PRN ×2 (01:24)
[2017-11-17] MEDS ORDERED: Magnesium 2 GM/NS 0.9% 100 ML 2 GM in Premix Bag 1 BAG IVPB PRN (01:24)
[2017-11-17] MEDS ORDERED: Potassium Chloride 40 MEQ in Sodium Chloride 0.9% 250 ML 250 ML IVPB PRN (01:24)
[2017-11-17] MEDS ORDERED: Potassium Chloride 20 MEQ TAB PO PRN (01:24)
[2017-11-17] MEDS ORDERED: CCU ELECTROLYTE REPLACEMENT PROTOCOL FS PRN (01:24)
[2017-11-17] MEDS ORDERED: Potassium Phosphate 12 MMOL in Sodium Chloride 0.9% 250 ML 250 ML IV PRN (01:24)
[2017-11-17] MEDS ORDERED: Potassium Phosphate 15 MMOL in Sodium Chloride 0.9% 250 ML 250 ML IV PRN (01:24)
[2017-11-17] MEDS ORDERED: Potassium Chloride 40 MEQ in Premix Bag 1 BAG IVPB PRN (01:24)
[2017-11-17] MEDS ORDERED: Potassium Phosphate 9 MMOL in Sodium Chloride 0.9% 100 ML IVPB PRN (01:24)
[2017-11-17 01:30] LABS: Lactic Acid 4.9 mmol/L (0.5-2.2)
[2017-11-17] MEDS: Sodium Chloride 0.9% 1,000 ML IV SCH ×3 (02:11→20:41)
[2017-11-17] MEDS: Ipratropium Bromide 2.5 ml Neb NEB SCH ×4 (02:26→19:07)
[2017-11-17 02:28] VITALS: BMI 17.7
[2017-11-17] MEDS ORDERED: Cefepime 2 GM in Sodium Chloride 0.9% 100 ML IVPB SCH (03:00)
[2017-11-17 03:53] LABS: CO2 Tension 41.1 mmHg (35.0-45.0); pH, Arterial 7.39 (7.35-7.45)
[2017-11-17 03:54] LABS: Actual Bicarbonate (HCO3a) 24.3 mEq/L (22-28); Base Excess (BEa) -0.7 mEq/L (-2.0 to +3.0); O2 Tension (PaO2) 42.4 mmHg (> 70.0)
[2017-11-17 03:55] LABS: ALV-art Gradient 619.225 (0-20); Calcium, Ionized 1.1 mmol/L (1.12-1.30); Puncture Site LBR
[2017-11-17] MEDS: Norepinephrine 8 MG/0.9% NS 250 ML IVPB PRN ×3 (05:23→18:22)
[2017-11-17] MEDS: Vasopressin 40 UNIT, Admixture Fee 1 EACH in Sodium Chloride 0.9% 98 ML IV SCH ×2 (08:02→21:28)
[2017-11-17] MEDS ORDERED: Sodium Chloride 0.9% 1,000 ML IV SCH (08:30)
[2017-11-17 08:31] LABS: Base Excess (BEa) 0.1 mEq/L (-2.0 to +3.0); CO2 Tension 46.3 mmHg (35.0-45.0); O2 Tension (PaO2) 42.4 mmHg (> 70.0); pH, Arterial 7.37 (7.35-7.45)
[2017-11-17 08:32] LABS: Calcium, Ionized 1.1 mmol/L (1.12-1.30)
[2017-11-17 08:33] LABS: ALV-art Gradient 612.725 (0-20); Analyzer IN Cardio OR; Peep/CPAP 7.5 cmH2O; Puncture Site RR
[2017-11-17 08:34] LABS: pH, Arterial 7.33 (7.35-7.45)
[2017-11-17 08:35] LABS: Base Excess (BEa) 0.2 mEq/L (-2.0 to +3.0); Hemoglobin (Hb) 15.6 g/dL (14.0-18.0); O2 Tension (PaO2) 38.8 mmHg (> 70.0)
[2017-11-17 08:36] LABS: Puncture Site RR
[2017-11-17] MEDS: Pantoprazole 40 MG VIAL IVP SCH ×2 (08:36→20:39)
[2017-11-17] MEDS: Acetaminophen 1,000 MG in Premix Bag 1 BAG IVPB PRN ×3 (08:36→20:40)
[2017-11-17] MEDS: Albumin 25% 25 GM/100 ML BOT IVPB SCH ×3 (08:36→20:39)
--- NOTE | 2017-11-17 09:02 | HP ---
CHIEF COMPLAINT: Acute hypoxia. HISTORY OF PRESENT ILLNESS: Patient is a 72-year-old male with a history of COPD who was just discha rged from our facility on 11/11, who presented to the hospital with acute hypoxia. According to the ER physician, the patient was having some respiratory distress at the group home at which time kayley duarte was summoned. In the field, he was put on CPAP, which he did not tolerate, kept fighting the C PAP off, so he was put on a nonrebreather and brought into the ER for evaluation. On the nonrebreath er, he was 76% and was very short of breath. At that time, in the ER, BiPAP was initiated; however, the patient's respiratory status continued to deteriorate and he was intubated. The patient also was given 2500 normal saline bolus followed by normal saline running at 100 mL an hour. He is currently hypotensive. He already has been started on a pressor and has been given broad-spectrum antibiotics . Patient's CT chest which I reviewed indicated significant consolidation bilaterally, which were no t present on his previous CT, which was done just a few weeks ago. PAST MEDICAL HISTORY: This is all again from his previous history since nobody is available for me t o ask, history of COPD, has a history of vertebral fracture, hyperthyroidism, and also sacral fractur e. PAST SURGICAL HISTORY: Left hip replacement, left knee surgery, and left eye surgery. PSYCHIATRIC: Reviewed and unable to determine. SOCIAL HISTORY: Unable to determine currently; however, notes stated that he is smoking 1-1/2 cigare ttes a day. He denies any alcohol use or any drug use; however, currently I am not sure if he is smo tati any cigarettes. He is retired and a . FAMILY HISTORY: No history of heart disease, cancer, or CVA. ALLERGIES: He has no known drug allergies. HOME MEDICATIONS: This is again from his recent discharge summary. He was sent home with Omnicef 30 0 mg b.i.d. for 5 days, vitamin B12, Pepcid, folic acid 1 mg p.o. daily, Mucinex 600 mg 4 times a day , DuoNeb q.6 hours p.r.n., Dulera two puffs inhalation b.i.d., prednisone 20 mg b.i.d. for 5 days. REVIEW OF SYSTEMS: Unable to obtain since the patient is currently intubated. PHYSICAL EXAMINATION: VITAL SIGNS: As of the following: He is afebrile at 98.8. His heart rates at 117. His blood press ure is 80/54. ____. GENERAL: He is intubated. HEENT: The patient appears to be mildly dehydrated. CARDIOVASCULAR: S1, S2 present, sinus tachycardia. LUNGS: Mild rhonchi all over with mild expiratory wheezing. ABDOMEN: Soft, nontender. Bowel sounds are present x2. EXTREMITIES: No edema. Patient appears very cachectic. NEUROLOGIC: Unable to obtain since the patient is bit intubated; however, he was moving all 4 extrem ities prior to his intubation. SKIN: No bruises or lesions noted. He did have a CT chest, which I reviewed, appeared to be bilater al consolidation to lower lobes with emphysema. I did not see any pleural effusion. Brain CT, I was told it was negative. LABORATORY DATA: As of the following: WBCs of 5.6, hemoglobin of 14.2, hematocrit of 47.9. His shweta telets are 50, which is at baseline for him and he has bands today of 24. Chemistry: Sodium of 140, potassium of 4.4, creatinine 1.8. His lactic acid is 4.9. ASSESSMENT AND PLAN: The patient is a 72-year-old male who presents to the hospital with hypoxia. 1. Acute respiratory failure with hypoxia. Patient is currently intubated. We will start patient o n IV antibiotics, broad spectrum. We will start him on vancomycin and cefepime for now and also doub le coverage for Pseudomonas with Levaquin. We will also do DuoNeb and will start the patient on some Solu-Medrol since he was recently on steroids. 2. Septic shock. Patient received 2-1/2 liters of normal saline bolus and also currently is on flui ds with low blood pressure and is on Levophed. We will continue to monitor and continue antibiotics. 3. Chronic obstructive pulmonary disease, severe emphysematous changes in his prior CAT scan. We wi ll continue DuoNebs and steroids for that. 4. Bandemia. Again, this is most likely secondary to his infection. May consider getting ____ to c ome see this patient. 5. Malnutrition. The patient appears very cachectic. May start insert a NG tube for early feedings to prevent any significant deconditioning. 6. Deep venous thrombosis prophylaxis. We will put patient currently on SCD since his platelets are normal.
--- NOTE | 2017-11-17 09:04 | RAD ---
AP VIEW CHEST: 11/16/17 HISTORY: Respiratory distress. Poor effort on arrival. Unresponsive. AP view chest is obtained. The patient is intubated with endotracheal tube in good position. There is a nasogastric tube in place. The side port appears to be at the level of the gastroesophageal juncti on while the distal aspect appears to be overlying the gastric air bubble. There is an area of air space opacity in the right lower lobe compatible with extensive right lower l obe pneumonia. This was not present on the patient's previous comparison radiograph from 11/04/17. Small bilateral pleural effusions also seen. IMPRESSION: Interval development of a large area of opacity in the right lower lobe concerning for an area of rig ht lower lobe pneumonia. POS: [facility]
--- NOTE | 2017-11-17 09:35 | CON ---
DATE OF CONSULTATION: 11/17/2017 CONSULTING PHYSICIAN: Dr. Ramirez from the hospitalist group. REASON FOR CONSULTATION: Pneumonia, respiratory failure, septic shock. HISTORY OF PRESENT ILLNESS: Unfortunately, there is no history and physical or ER notes on the chart, so what I have is obtained from his previous admission in the hospital. He is 72 years old. He has significant COPD. He came to the hospital for the first time on 11/05/2017 with COPD exacerbation and vocal loss. He also fractured his tailbone. I am not sure about the events that led to him coming last night, but when he presented, he was in respiratory failure. He was intubated. He was placed on mechanical ventilation. He was given volume resuscitation and placed on vasopressors. Pneumonitis in the right lung appears to be much worse than previous hospitalization. PAST MEDICAL HISTORY: COPD. PAST SURGICAL HISTORY: Left hip replacement surgery and left knee surgery. SOCIAL HISTORY: Quit smoking about 2 months ago. Formerly smoked less than a pack per day. Does not consume alcohol. Does not use illicit drugs. He lives at home with his and I think he has most recently been in a [facility]. ALLERGIES: None. REVIEW OF SYSTEMS: Cannot be obtained as the patient is on mechanical ventilation. MEDICATIONS PRIOR TO ADMISSION: Tramadol, vitamin B12, Omnicef, Dulera, DuoNeb , folate, Pepcid, Mucinex, prednisone. PHYSICAL EXAMINATION: VITAL SIGNS: Temperature 98.8, pulse 129, blood pressure 105/56, currently on a Levophed drip, O2 sat running in the low 80s. The patient is arousable. GENERAL APPEARANCE: He has severe bitemporal wasting. HEENT: His pupils are 5 mm, reactive to light. Sclerae are anicteric. Oropharynx dry. NECK: No JVD. LUNGS: He has inspiratory crackles bilaterally. CARDIOVASCULAR: S1, S2, tachycardic without murmur. ABDOMEN: Soft and nontender. EXTREMITIES: Severe muscle wasting throughout. LABORATORY DATA: White blood cell count 5.6, hematocrit 47.9, platelet count 50 with 32% neutrophils, 24% bands, pH was 7.39, pCO2 of 41, pO2 of 42, that was at 3:30 this morning on SIMV rate 24, tidal volume 500, PEEP 5, pressure support 10, FiO2 100%. Sodium 140, potassium 4.4, chloride 98, CO2 28, BUN 41, creatinine 1.5, glucose 85 and lactate 4.9. IMAGING DATA: Chest x-ray shows diffuse bilateral infiltrative changes. He has an endotracheal tube in place. He has a left IJ line in place. His chest x -ray shows, looks to be bilateral effusions and basilar infiltrative changes. Surprisingly, almost everything seems to be dependent in nature. ASSESSMENT: 1. Bilateral pneumonia. 2. Acute on chronic hypoxic respiratory failure requiring mechanical ventilation. 3. Septic shock. 4. Overall, failure to thrive with severe protein calorie malnutrition. RECOMMENDATIONS: 1. Continue with vancomycin, Levaquin and cefepime. 2. Add vasopressin. 3. Give some albumin. 4. Continue IV fluids. 5. I have adjusted mechanical ventilation settings and will check an ABG. 6. Would withhold any heparin or Lovenox at this time because of thrombocytopenia. 7. Protonix for GI prophylaxis. This patient's prognosis is very poor and family needs to be made aware. 45 minutes CC time MTDD
--- NOTE | 2017-11-17 09:57 | RAD ---
AP VIEW CHEST: 11/16/17 HISTORY: Dyspnea. AP view chest again obtained. Nasogastric and endotracheal tubes are in place. Also there is interval placement of a right neck line distal tip is difficult to visualize. This may be in the superior vena cava although if position is difficult to exclude the possibility that this m ay be in the right carotid artery and the distal tip is in the aorta. Correlate with right neck newly placed catheter blood flow and pressures. Comparison made to a previous radiograph from approximately 50 minutes earlier. No significant interval changes are seen. Endotracheal tube is in good position. There is again air space opacity in the right lung base. There may be some increasing opacity also in the left hilar region. Small bilateral pleural effusions seen. IMPRESSION: 1. Right lower lobe and possible left perihilar opacities with bilateral pleural effusions seen. 2. Right neck catheter distal tip not clearly visualized. Findings called to Dr. Wasserman at 10:16 p.m. on 11/16/17. Code CR POS: ЕЛЕНА
--- NOTE | 2017-11-17 10:16 | CT ---
CT BRAIN 11/16/17 HISTORY: Altered mental status. Respiratory distress. Noncontrast enhanced CT images of the brain obtained. CT images demonstrate no evidence of calvarial fractures. Some mucosal thickening is seen in the fron eduardo sinuses. The sphenoid and mastoid air cells are well aerated. No evidence of acute intracranial masses, hemorrhages, or strokes seen. There appears to be approximately 3 mm area of fat density in the interpeduncular cistern region. 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 IMPRESSION: No evidence of acute intracranial abnormality is seen. POS: [facility]
--- NOTE | 2017-11-17 10:20 | CT ---
NONCONTRAST ENHANCED CT IMAGES OF THE CHEST 11/16/17 HISTORY: Pneumonia. Noncontrast enhanced CT images of the chest is obtained. Endotracheal tube is in good position. There is a right jugular central line distal tip within the superior vena cava. The nasogastric tube is in good position. There is extensive emphysematous changes. Extensive bibasilar areas of pneumonia is seen involving both lower lobes. Areas of pneumonia also in volve patchy areas in the right and left upper lobes as well as in the lateral and mid portion of the right middle lobe. There is also an approximately 3.6 mm well circumscribed density seen on the right upper lobe on the axial views. This on the coronal may represent focal area of a patulous pulmonary vessel. Bilateral apical areas of pleural thickening also seen with adjacent areas of likely scar. IMPRESSION: Extensive lung parenchymal opacities. Findings compatible with likely bilateral pneumonia. POS: [facility]
[2017-11-18] MEDS: Ipratropium Bromide 2.5 ml Neb NEB SCH ×2 (00:28→07:12)
[2017-11-18] MEDS ORDERED: Cefepime 2 GM in Sodium Chloride 0.9% 100 ML IVPB SCH (01:00)
[2017-11-18] MEDS: Albumin 25% 25 GM/100 ML BOT IVPB SCH ×2 (01:30→09:16)
[2017-11-18] MEDS ORDERED: Vancomycin HCl 1 GM in Premix Bag 1 BAG IVPB SCH (02:00)
[2017-11-18] MEDS: Norepinephrine 8 MG/0.9% NS 250 ML IVPB PRN (02:37)
[2017-11-18 05:36] LABS: ALT (SGPT) 482 U/L (8-55); AST (SGOT) 631 U/L (5-34); Albumin 3.3 g/dL (3.4-4.8); Alkaline Phosphatase 63 U/L (40-150); Anion Gap 24 mmol/L (10-20); BUN (Urea Nitrogen) 66 mg/dL (8.4-25.7); Bilirubin, Total 7.9 mg/dL (0.2-1.2); Calc. Creatinine Clearance 23 mL/min (70-130); Calcium 7.8 mg/dL (7.8-10.44); Carbon Dioxide 17 mmol/L (23-31); Chloride 105 mmol/L (98-107); Estimated GFR-MDRD 23; Globulin 1.5 g/dL (2.4-3.5); Glucose 19 mg/dL (83-110); Potassium 6.5 mmol/L (3.5-5.1); Protein, Total 4.8 g/dL (5.8-8.1); Sodium 139 mmol/L (136-145)
[2017-11-18] MEDS ORDERED: Dextrose 50% Abboject 50 ML SYRINGE ONE (05:36)
[2017-11-18] MEDS ORDERED: Dextrose 5% in Water 1,000 ML IV PRN (05:46)
[2017-11-18] MEDS ORDERED: Dextrose 50% Abboject 50 ML SYRINGE IVP PRN (05:46)
[2017-11-18 05:47] LABS: Hemoglobin 12.8 g/dL (14.0-18.0); Mean Corpuscular HGB CONC 30.7 g/dL (32.0-36.0); Mean Corpuscular Hemoglobin 34.1 pg (27.0-31.0); Mean Platelet Volume 12.6 fL (7.4-10.4); Platelet Count 11 thou/uL (130-400); RBC Distribution Width 13.9 % (11.5-14.5); Red Blood Cell (RBC) Count 3.75 mill/uL (4.70-6.10); White Blood Cell (WBC) Count 26.3 thou/uL (4.8-10.8)
[2017-11-18 05:51] LABS: Band 41 % (5-11); Lymphocytes 3 % (21-51); MDiff Complete? YES; Monocytes 9 % (0-10); Neutrophil 47 % (42-75); PLT Morphology Comment Appears Decreased
[2017-11-18 07:26] LABS: Actual Bicarbonate (HCO3a) 14.2 mEq/L (22-28); Base Excess (BEa) -12.7 mEq/L (-2.0 to +3.0); CO2 Tension 36.1 mmHg (35.0-45.0); O2 Tension (PaO2) 63.9 mmHg (> 70.0); pH, Arterial 7.21 (7.35-7.45)
[2017-11-18 07:27] LABS: Hemoglobin (Hb) 13.2 g/dL (14.0-18.0); Puncture Site RRA
[2017-11-18 07:28] LABS: ALV-art Gradient 603.975 (0-20)
[2017-11-18] MEDS ORDERED: Sodium Bicarbonate 120 MEQ in Dextrose 5% in Water 1,000 ML IV SCH (07:30)
[2017-11-18 07:31] VITALS: BP 104/53
[2017-11-18] MEDS ORDERED: Calcium Gluc 4.6 MEQ/10 ML (100 MG/ML) SLOW IVP ONE (07:38)
[2017-11-18] MEDS ORDERED: Calcium Gluconate 4.6 MEQ in Sodium Chloride 0.9% 100 ML IVPB SCH (07:45)
--- NOTE | 2017-11-18 07:53 | PRG ---
DATE OF SERVICE: 11/18/2017 This is 35 minutes critical care time. Mr. De Leon has continued to do poorly overnight. He remains on multiple vasopressors including norepi nephrine and vasopressin. PHYSICAL EXAMINATION: GENERAL: He is unresponsive to deep stimuli. VITAL SIGNS: His temperature is 98.2, pulse 102, blood pressure 107/53. A 24-intake 5407 and output 428. HEENT EXAM: Remarkable for severe bitemporal wasting and slightly icteric sclerae. NECK: No JVD. LUNGS: Coarse breath sounds bilaterally. CARDIOVASCULAR: S1 and S2, slightly tachycardic. ABDOMEN: Soft and nontender. EXTREMITIES: Edematous throughout. LABORATORY DATA: ABG: PH 7.21, pCO2 of 36, pO2 of 63 that is on bilevel 27/7, rate of 24, FiO2 100% . White blood cell count 26.3, hematocrit 41.7, platelet count 11. Sodium 139, potassium 6.5, chlor nella 105, CO2 of 17, BUN 66, creatinine 2.7, glucose 19, AST 631, ALT 482. Chest x-ray is pending. ASSESSMENT: 1. Multiple organ failure including respiratory failure, liver failure, renal failure. 2. Severe hyperkalemia. 3. Acute respiratory failure requiring mechanical ventilation. 4. Bilateral pneumonia, right greater than left. 5. Generalized failure to thrive. PLAN: I spent 10-15 minutes on the phone with the patient's this morning. I told her that I di d not think there was any way that Mr. De Leon could survive the current illness. We discussed DNR sta tus and she was agreeable to enter a DNR order on the chart for the patient. I told her to go ahead and get the family together. I have encouraged her to withdraw care when the family is ready. In the meantime, I have changed his fluids to D5 with bicarbonate to hopefully help with the blood lara gar. We will continue antibiotic therapy and current mechanical ventilation. The patient's und erstands even with this intervention that he is unlikely to improve.
--- NOTE | 2017-11-18 08:09 | RAD ---
PORTABLE SUPINE FRONTAL CHEST: Date: 11/18/17 COMPARISON: 11/16/17. HISTORY: Ventilated patient. FINDINGS: Endotracheal tube terminates in the region of the clavicular heads. Stable nasogastric tube and right -sided vascular catheter. Supine imaging is provided, limiting assessment for pneumothorax and pleura l fluid. There is pulmonary vascular congestion with perihilar and bibasilar interstitial opacity. There is al so prominent bibasilar air space disease with small bilateral pleural effusions suspected. No signifi cant interval change noted. IMPRESSION: Stable appearance of the chest as described above. POS: [facility]
[2017-11-18 08:24] VITALS: TEMP 98.5
[2017-11-18] MEDS: Sodium Chloride 0.9% 1,000 ML IV SCH (08:31)
[2017-11-18] MEDS: Pantoprazole 40 MG VIAL IVP SCH (09:16)
--- NOTE | 2017-11-19 05:26 | DS ---
SUMMARY DATE OF ADMISSION: 11/17/2017 DATE OF : 11/18/2017 FINAL DIAGNOSES: 1. Septic shock secondary to suspected pneumonia. 2. Acute hypoxic respiratory failure on mechanical ventilation. 3. Severe chronic obstructive pulmonary disease exacerbation with emphysema. 4. Hyperkalemia. 5. Liver shock. 6. Gram-negative darron bacteremia. 7. Severe protein-calorie malnutrition. 8. Chronic thrombocytopenia. CONSULTATIONS: Dr. Burnette with Pulmonology, Critical Care service . PERTINENT LABORATORY DATA AND X-RAY FINDINGS: Potassium ranged between 4.4 to 6.5, creatinine ranged between 1.54 to 2.69, lactic acid level ranged between 2.6 to 4.9, AST ranged between 19 to 631, ALT ranged between 17 to 482, alkaline phosphatase ranged between 49 to 63. Albumin ranged between 2.5 to 3.3. CBC showed a white blood cell count ranging between 5.6 to 26.3, hemoglobin ranged between 1 2.8 to 14.2, platelet count ranged between 11 to 50. Bands ranged between 24% to 41%. Blood culture s x2 dated 11/16/2017 showed 2/2 positive for Gram-negative rods. Urine culture dated 11/17/2017 bong wed no growth at 24 hours. Portable chest x-ray dated 11/16/2017 showed large area of opacity in the right lower lobe concerning for pneumonia. CT of the brain without contrast dated 11/16/2017 showed no acute intracranial process. Portable chest x-ray dated 11/16/2017 showed right central venous ca theter in the distribution of internal jugular venous system. CT of the chest dated 11/16/2017 showe d extensive parenchymal opacities of bilateral lobes right greater than left. HOSPITAL COURSE: Patient was admitted to the Critical Care Unit after presenting with acute hypoxic hypercapnic respiratory failure in the context of known chronic obstructive pulmonary disease with re cent admission for acute hypoxemia. Patient was initially managed with CPAP, transitioning to BiPAP noninvasive mechanical ventilation unsuccessfully. Patient was intubated and placed on mechanical ve ntilation. Patient was noted with hypotension and septic shock and placed on multiple vasopressors f or support. Patient received broad-spectrum IV antibiotic coverage to include vancomycin and cefepim e as well as Levaquin. Patient received IV Solu-Medrol and aggressive IV fluid hydration. The patie nt was noted with worsening infiltrates of bilateral lung calhoun right greater than left, concerning for pneumonia. Patient continued to receive maximal support including vasopressor therapy as well as albumin, norepinephrine, and Solu-Medrol. Patient's overall blood gases continued to deteriorate de spite maximal support and discussions were had with the family regarding ongoing aggressive measures versus transitioning to palliative and supportive measures. After family discussion, patient was con verted to DO NOT RESUSCITATE status and terminally extubated. The patient at 12:09 p.m. on 0 11/18/2017 with family present at the bedside. Decedent affairs were notified and the patient was tra nsport per protocol. No autopsy was performed.
--- NOTE | 2017-11-19 10:47 | EKG ---
Test Reason : Blood Pressure : / mmHG Vent. Rate : 142 BPM Atrial Rate : 142 BPM P-R Int : 116 ms QRS Dur : 068 ms QT Int : 250 ms P-R-T Axes : 081 -44 083 degrees QTc Int : 384 ms Sinus tachycardia Left axis deviation Low voltage QRS Possible Inferior infarct , age undetermined Abnormal ECG Confirmed by JUSTINA SENIOR ([id number]) on 11/19/2017 10:46:48 AM Referred By: Confirmed By:JUSTINA SENIOR
== END 2017-11-18 14:00 | disposition expired | DRG 871 ==
LOC: ERS 21:03 → CCU 11-17 00:19
PROVIDERS: ADMIT Internal Medicine; ATTEND Internal Medicine
PROC: 5A1945Z Respiratory Ventilation, 24-96 Consecutive Hours (ICD-10-PCS; principal; 2017-11-17)
PROC: 0BH17EZ Insertion of Endotracheal Airway into Trachea, Via Natural or Artificial Opening (ICD-10-PCS; 2017-11-17)
PROC: 02HV33Z Insertion of Infusion Device into Superior Vena Cava, Percutaneous Approach (ICD-10-PCS; 2017-11-17)
PROC: 3E043XZ Introduction of Vasopressor into Central Vein, Percutaneous Approach (ICD-10-PCS; 2017-11-17)
DX: A41.50 Gram-negative sepsis, unspecified (principal); J96.21 Acute and chronic respiratory failure with hypoxia; R65.21 Severe sepsis with septic shock; J18.9 Pneumonia, unspecified organism; E43 Unspecified severe protein-calorie malnutrition; K72.00 Acute and subacute hepatic failure without coma; J96.22 Acute and chronic respiratory failure with hypercapnia; Z68.1 Body mass index [BMI] 19.9 or less, adult; R64 Cachexia; J44.0 Chronic obstructive pulmonary disease with (acute) lower respiratory infection; J44.1 Chronic obstructive pulmonary disease with (acute) exacerbation; Z66 Do not resuscitate; J44.9 Chronic obstructive pulmonary disease, unspecified; D69.6 Thrombocytopenia, unspecified; Z51.5 Encounter for palliative care; E87.5 Hyperkalemia; R62.7 Adult failure to thrive; N19 Unspecified kidney failure; Z87.891 Personal history of nicotine dependence; Z79.52 Long term (current) use of systemic steroids
CPT/HCPCS: 36416; 70450; 71045; 71250; 80053; 81003; 81015; 82330; 82550; 82803; 82805; 83605; 85007; 85025; 85027; 86900; 86901; 87040; 87077; 87086; 87149; 87186; 93005; 93010; 94002; 94003; 94644; A4216; C9113; J0131; J0692; J1956; J2060; J2250; J2270; J2920; J3010; J3370; J7050; J7070; J7611; J7620; J7644; P9047